=== PATIENT | female | born 1950 | race Caucasian/White ===

== ENCOUNTER 2020-01-11 09:12 | Emergency (ER) | payer MEDICARE, SELFPAY ==
[2020-01-11] VITALS (13 sets, daily range): BP systolic 151–177; BP diastolic 60–89; PULSE 90; RESP 18; TEMP 36.8; O2SAT 92–98
[2020-01-11] MEDS: BELLADONNA ALK/PHENOB ELIX 10 ML, MAG HYDROX/ALUMINUM HYD/SIMETH 30 ML, LIDOCAINE HCL 2... PO (10:31)
--- NOTE | 2020-01-11 10:52 | ED.GENADULT ---
HPI - General Adult General Chief complaint: Unspecified Stated complaint: sore throat, feeling terrible, negative strep Time Seen by Provider: 01/11/20 09:39 History of Present Illness HPI narrative: Patient is a 69-year-old female who presents ER with sore throat. Ongoing for 2 weeks. Feels discomfort when she swallows pills. Worse during the day as opposed to nighttime. No alleviating factors. Was seen in urgent care couple days ago and had negative strep test. No fevers or chills or sweats. She has had no sinus congestion or productive cough. No known sick contacts. Has been practicing social distancing. Patient has been under increased stress due to being ill. She has no chest pain or exertional component to this. States the urgent care told her that her thyroid might be enlarged. Patient reports that she has been feeling fatigued. Related Data Home Medications Medication Instructions Recorded Confirmed atorvastatin 01/11/20 lorazepam 01/11/20 sertraline mg 01/11/20 zolpidem 01/11/20 Allergies Allergy/AdvReac Type Severity Reaction Status Date / Time No Known Allergies Allergy Unknown Verified 01/11/20 09:35 Review of Systems Review of Systems: All systems reviewed & are unremarkable except as noted in HPI and below Constitutional: Constitutional: Denies chills, Reports fatigue and Denies fever(s) ENT: Denies dysphagia, Denies nasal congestion and Reports sore throat Cardiovascular: Cardiovascular: Denies chest pain Respiratory: Respiratory: Denies chest congestion, Denies cough and Denies dyspnea Gastrointestinal: Gastrointestinal: Denies abdominal pain, Denies nausea and Denies vomiting PMFSH Past Medical History Medical History (Updated 01/11/20 @ 13:01 by Clemente Ashraf MD) Depression Hyperlipidemia Surgical History Surgical History (Updated 01/11/20 @ 11:30 by Clemente Ashraf MD) History of hip replacement Social History Social History (Updated 01/11/20 @ 11:31 by Clemente Ashraf MD) Smoking status: Never smoker Exam Narrative: Exam Narrative: GENERAL: Well-appearing, well-nourished, and in no acute distress. HEAD: Normocephalic, atraumatic. ENT: Mucous membranes moist. Normal posterior oropharynx. NECK: Supple. Thyroid seems to be normal size. CHEST: Clear to auscultation. No respiratory distress. HEART: Regular rate and rhythm. Normal peripheral pulses. ABDOMEN: Soft, nontender, nondistended. EXTREMITIES: Normal range of motion. No edema. SKIN: Warm, dry, no rash. NEURO: Alert and oriented x3. Course Course Emergency Course: Patient informed of results. Discussed case with Dr. Aldridge. No need to intervene regarding TSH at this time we will see patient in routine follow-up. Vital Signs Vital signs: Vital Signs Blood Pressure 151/66 H 01/11/20 09:24 Pulse Oximetry 98 01/11/20 09:24 Temperature 98.2 F 01/11/20 09:29 Pulse Rate 90 01/11/20 09:29 Respiratory Rate 18 01/11/20 09:29 Blood Pressure 154/89 H 01/11/20 10:51 Pulse Oximetry 98 01/11/20 10:51 Medical Decision Making Vital Signs Vital Signs: Vital Signs Blood Pressure 151/66 H 01/11/20 09:24 Pulse Oximetry 98 01/11/20 09:24 Temperature 98.2 F 01/11/20 09:29 Pulse Rate 90 01/11/20 09:29 Respiratory Rate 18 01/11/20 09:29 Blood Pressure 154/89 H 01/11/20 10:51 Pulse Oximetry 98 01/11/20 10:51 Lab Data Result diagrams: 01/11/20 10:43 01/11/20 10:43 Labs: Lab Results 01/11/20 01/11/20 01/11/20 Range/Units 10:43 10:43 10:43 WBC 5.9 (4.5-10.0) K/mm3 RBC 4.62 (4.2-5.4) M/mm3 Hgb 13.3 (12.0-15.0) g/dL Hct 41.0 (37.0-47.0) % MCV 88.7 (80-100) fl MCH 28.8 (26-34) pg MCHC 32.4 (32-36) g/dl RDW 13.1 (11.5-14.5) % Plt Count 216 (150-375) k/mm3 MPV 10.5 H (7.4-10.4) fl Immature Gran % (Auto) 0.3 (0-0.5) % Neut % (Auto) 63.5 (45
[2020-01-11 10:54] LABS: Basophils Percent Auto 0.7 % (0.2-1.2); Eosinophils Absolute Auto 0.1 K/mm3 (0-0.3); Eosinophils Percent Auto 1.7 % (0-4.4); Hemoglobin 13.3 g/dL (12.0-15.0); Immature Granulocyte Absolute 0.02 K/mm3 (0.00-0.031); Immature Granulocyte Percent A 0.3 % (0-0.5); Lymphocytes Absolute Auto 1.54 K/mm3 (0.9-3.2); Mean Corpuscular HGB Conc 32.4 g/dl (32-36); Mean Corpuscular Hemoglobin 28.8 pg (26-34); Mean Corpuscular Volume 88.7 fl (80-100); Mean Platelet Volume 10.5 fl (7.4-10.4); Monocytes Absolute Auto 0.5 K/mm3 (0.1-0.6); Monocytes Percent Auto 7.8 % (2.6-8.5); Neutrophils Absolute Auto 3.8 K/mm3 (1.3-6.7); Neutrophils Percent Auto 63.5 % (45.5-73.1); Platelet Count Result 216 k/mm3 (150-375); Red Blood Count 4.62 M/mm3 (4.2-5.4); Red Cell Distribution Width 13.1 % (11.5-14.5); White Blood Count 5.9 K/mm3 (4.5-10.0)
[2020-01-11 10:59] LABS: Add Urine Microscopic? YES; Appearance Urine Clear (Clear); Bacteria Urine Trace /hpf; Bilirubin Urine Negative (Negative); Blood Urine Negative (Negative); Color Urine Straw (Yellow); Glucose Urine UA Negative (Negative); Ketones Urine Negative (Negative); Leukocyte Esterase Ur Trace LEU/UL (Negative); Mucus Urine Rare /lpf; Nitrate Urine Negative (Negative); Protein Urine Negative (Negative); RBC Urine 0-2 /hpf (0-2); Specific Grav Ur 1.014 (1.001-1.035); Squamous Epithelial Cell Urine Moderate /hpf (Few); Urobilinogen Urine Negative mg/dL (<2.0); WBC Urine 0-3 /hpf
[2020-01-11 11:13] LABS: Blood Urea Nitrogen 11 mg/dL (7-17); Calcium 10.2 mg/dL (8.4-10.2); Carbon Dioxide 29 mmol/L (22-30); Chloride 103 mmol/L (98-107); Estimated CRCL calculation 78 ml/min; Estimated Glomerular Filt Rate > 60; Glucose 122 mg/dL (65-105); Sodium 139 mmol/L (137-145)
[2020-01-11 13:26] LABS: Free T4 Free Thyroxine Reflex 0.95 ng/dL (0.78-2.19)
[2020-01-11 14:07] LABS: Total Triiodothyronine (T3) 1.73 NG/ML (0.97-1.69)
== END 2020-01-11 13:10 | disposition home or self-care (01) ==
PROVIDERS: Emergency Provider Emergency Medicine; PCP Internal Medicine
DX: R07.0 Pain in throat (principal); R94.6 Abnormal results of thyroid function studies; E78.5 Hyperlipidemia, unspecified; Z96.649 Presence of unspecified artificial hip joint; F32.9 Major depressive disorder, single episode, unspecified
CPT/HCPCS: 36415; 80048; 81001; 84439; 84443; 84480; 85025; 99283; A9270

== ENCOUNTER 2020-01-16 12:28 | Outpatient (CLI) | payer MEDICARE, SELFPAY ==
--- NOTE | ~2020-01-16 | US_ITS ---
EXAMINATION: US thyroid DATE: 01/16/2020 13:14 INDICATION: Hypothyroidism TECHNIQUE: Multiple ultrasound images of the thyroid were obtained. COMPARISON: None. FINDINGS: The right thyroid lobe measures 3.6 x 2.2 x 1.2 cm. The left thyroid lobe measures 3.6 x 1.5 x 1.1 c m. Wider than tall 7 mm solid nodule with smooth margins and without echogenic foci in the right thy roid (TI-RADS 3, mildly suspicious , FNA if >=2.5 cm, annual followup is >1.5 cm). Mildly coarsened echotexture throughout the thyroid. IMPRESSION: 1. Likely benign 7 mm right thyroid nodule. Reviewed, dictated and finalized at location A.
== END 2020-01-16 12:29 | disposition home or self-care (01) ==
PROVIDERS: PCP Internal Medicine; Visit Provider Internal Medicine
DX: E02 Subclinical iodine-deficiency hypothyroidism (principal); E04.1 Nontoxic single thyroid nodule
CPT/HCPCS: 76536

== ENCOUNTER → 2020-11-03 17:32 | Outpatient (CLI) | payer MEDICARE, SELFPAY ==
--- NOTE | ~2020-11-03 | DEXA_ITS ---
Bone Density Report Name: Meka Tobar Age: 69 Sex: Female Ethnicity: White Date of : 1950 Indication: postmenopausal; screening for osteoporosis; height loss; Referring Provider: Denia Otto Study: Bone densitometry was performed. Exam Date: November 03, 2020 Accession number: [id number] Bone Density: Region BMD T-score Z-score Classification AP Spine (L1-L4) 1.110 0.6 2.5 Normal World Health Organization criteria for BMD impression classify patients as: Normal (T-score at or above -1.0), Osteopenia (T-score between -1.0 and -2.5), or Osteoporosis (T-score at or below -2.5). Previous Exams: Region Exam Age BMD T-score BMD Change BMD Change Date g/cm2 vs Baseline vs Previous AP Spine(L1-L4) 11/03/2020 69 1.110 0.6 0.026* 0.026* 07/09/2015 64 1.084 0.3 -0.001 0.010 06/10/2012 61 1.075 0.3 -0.010 -0.029* 06/03/2010 59 1.104 0.5 0.019 0.079* 05/29/2008 57 1.025 -0.2 -0.060* -0.060* 04/24/2005 54 1.085 0.3 *Denotes significance at 95% confidence level, LSC for AP Spine = 0.022 g/cm2 Clinical Information Provided by Patient: Has used the following medications: Vitamin D, Calcium, MTV Patient maximum height was 67.0 Menopause Age: 53 Drinks caffeinated beverages Onset of menses at age 14 Number of children 2 Impression: The patient has normal bone mass. No significant bone loss was observed. Discussion: LOW RISK OF FRACTURE; BONE DENSITY IS WELL ABOVE THE MINIMUM DESIRABLE LEVEL AND ABOVE AVERAGE FOR AGE AND SEX AT ALL SKELETAL SITES TESTED. This person's bone density is above expected limits for age and sex. This is rarely clinically significant, but should be pursued if there are significant musculoskeletal complaints. The patient should follow a healthful lifestyle (good nutrition with adequate calcium and vitamin D, and appropriate weight-bearing exercise). Follow-Up: Consider repeating this study in 5 years or sooner if there is some new clinical indication. Reported by: LACHELLE on 11/03/2020 6:50:00 PM. Reviewed, dictated and finalized at location [facility]
--- NOTE | ~2020-11-03 | MM_ITS ---
EXAMINATION: MM screening judit BI w josiah HISTORY: Screening TECHNIQUE: Craniocaudal and mediolateral oblique 3-D tomosynthesis images were obtained and synthetic 2-D images were generated. CAD analysis was submitted and interpreted. COMPARISON: Comparison to multiple prior studies sequentially, with oldest reviewed study dated 02/2015. BREAST PARENCHYMAL COMPOSITION: There are scattered areas of fibroglandular density. FINDINGS: There is no evidence of suspicious mass, calcification, or architectural distortion to sugg est malignancy in either breast. There has been no suspicious interval change. IMPRESSION: 1. No mammographic evidence of malignancy. 2. Recommend routine screening mammography in one year. BI-RADS Category 1: Negative Reviewed, dictated and finalized at location A. 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
== END ==
PROVIDERS: Visit Provider Obstetrics & Gynecology
DX: Z12.31 Encounter for screening mammogram for malignant neoplasm of breast (principal); Z78.0 Asymptomatic menopausal state
CPT/HCPCS: 77063; 77067; 77080

== ENCOUNTER 2020-11-19 10:01 | Outpatient (CLI) | payer MEDICARE, SELFPAY | END 2020-11-19 10:02 | disposition home or self-care (01) | LOC: ANHCOVIDVC 10:01 | DX: Z23 Encounter for immunization (principal) | CPT/HCPCS: 0001A; 91300 ==

== ENCOUNTER 2020-12-10 09:55 | Outpatient (CLI) | payer MEDICARE, SELFPAY | END 2020-12-10 09:56 | disposition home or self-care (01) | LOC: ANHCOVIDVC 09:55 | DX: Z23 Encounter for immunization (principal) | CPT/HCPCS: 0002A; 91300 ==

== ENCOUNTER → 2021-12-19 10:49 | Outpatient (CLI) | payer MEDICARE, SELFPAY ==
--- NOTE | ~2021-12-19 | MM_ITS ---
EXAMINATION: MM screening judit BI w josiah HISTORY: Screening mammogram TECHNIQUE: Craniocaudal and mediolateral oblique 3-D tomosynthesis images were obtained and synthetic 2-D images were generated. CAD analysis was submitted and interpreted. COMPARISON: 11/19/2020, 08/14/2019, 08/12/2018 bilateral screening mammogram examinations BREAST PARENCHYMAL COMPOSITION: There are scattered areas of fibroglandular density. FINDINGS: There is no evidence of suspicious mass, calcification, or architectural distortion to sugg est malignancy in either breast. There has been no suspicious interval change. IMPRESSION: 1. No mammographic evidence of malignancy. 2. Recommend routine screening mammography in one year. BI-RADS Category 1: Negative Reviewed, dictated and finalized at location A.
== END ==
PROVIDERS: PCP Internal Medicine; Visit Provider Obstetrics & Gynecology
DX: Z12.31 Encounter for screening mammogram for malignant neoplasm of breast (principal)
CPT/HCPCS: 77063; 77067

== ENCOUNTER → 2022-06-09 10:14 | Outpatient (CLI) | payer MEDICARE, SELFPAY ==
--- NOTE | ~2022-06-09 | CT_ITS ---
EXAMINATION: CT soft tissue neck w con DATE: 06/09/2022 11:00 INDICATION: Nontoxic single thyroid nodule. TECHNIQUE: Computed tomography (CT) of the neck was performed with 75 mL Omnipaque-350 intravenous co ntrast. Automated exposure control and iterative reconstruction technique were employed. The dose-nick gth product was 444.28 mGy-cm. COMPARISON: Thyroid ultrasound 01/16/2020 FINDINGS: The thyroid is normal. There are no pathologically enlarged lymph nodes. Calcified left hil ar lymph nodes are consistent with old granulomatous disease. There is plaque in the proximal interna l carotid arteries with less than 50% stenosis relative to normal distal artery lumen diameters. Ther e are calcifications in the palatine tonsils. There is a 1.4 x 1.5 cm mass inferior to the hyoid at t he midline with attenuation of 26 HU. There is severe cervical spondylosis. IMPRESSION: 1. 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 Reviewed, dictated and finalized at location B.
[2022-06-09 10:47] LABS: Estimated Glomerular Filt Rate > 60
== END ==
PROVIDERS: PCP Internal Medicine; Visit Provider Internal Medicine
DX: E04.1 Nontoxic single thyroid nodule (principal)
CPT/HCPCS: 70491; Q9967

== ENCOUNTER → 2023-02-21 10:35 | Outpatient (CLI) | payer MEDICARE, SELFPAY ==
--- NOTE | ~2023-02-21 | MM_ITS ---
EXAMINATION: MM screening judit BI w josiah HISTORY: Screening mammogram TECHNIQUE: Craniocaudal and mediolateral oblique 3-D tomosynthesis images were obtained and synthetic 2-D images were generated. CAD analysis was submitted and interpreted. COMPARISON: December 19, 2021, November 03, 2020, August 14, 2019, July 21, 2016, July 09, 2015 erick ateral screening mammogram examinations 05/15/2018 diagnostic left mammogram and limited left breast ultrasound at 12:00 BREAST PARENCHYMAL COMPOSITION: There are scattered areas of fibroglandular density. FINDINGS: There is no evidence of suspicious mass, calcification, or architectural distortion to sugg est malignancy in either breast. There has been no suspicious interval change. IMPRESSION: 1. No mammographic evidence of malignancy. 2. Recommend routine screening mammography in one year. BI-RADS Category 1: Negative Reviewed, dictated and finalized at location A.
== END ==
PROVIDERS: PCP Internal Medicine; Visit Provider Obstetrics & Gynecology
DX: Z12.31 Encounter for screening mammogram for malignant neoplasm of breast (principal)
CPT/HCPCS: 77063; 77067

== ENCOUNTER 2023-04-11 12:02 | Outpatient (CLI) | payer MEDICARE, SELFPAY ==
--- NOTE | 2023-04-11 | ECG_ITS ---
Measurements Intervals [place] Rate: 72 P: 20 AK: 193 QRS: 13 QRSD: 87 T: 18 QT: 357 QTc: 392 Interpretive Statements SINUS RHYTHM MINIMAL VOLTAGE CRITERIA FOR LVH, CONSIDER NORMAL VARIANT [MEETS CRITERIA IN ONE OF: R(aVL), S(V1), R(V5), R(V5/V6)+S(V1)] ABNORMAL ECG NO PREVIOUS ECG AVAILABLE FOR COMPARISON Electronically Signed On 04-11-2023 15:32:40 CDT by Jonathan Veloz M.D.
[2023-04-11 13:24] LABS: Anion Gap 6 mmol/L (8-16); Blood Urea Nitrogen 17 mg/dL (7-17); Calcium 9.5 mg/dL (8.4-10.2); Carbon Dioxide 30 mmol/L (22-30); Chloride 103 mmol/L (98-107); Estimated Glomerular Filt Rate > 60; Glucose 98 mg/dL (65-110); Potassium 4.3 mmol/L (3.4-5.0); Sodium 139 mmol/L (137-145)
== END 2023-04-11 12:03 | disposition home or self-care (01) ==
PROVIDERS: PCP Internal Medicine; Visit Provider Orthopaedic Surgery
DX: Z01.818 Encounter for other preprocedural examination (principal); R06.02 Shortness of breath; R94.31 Abnormal electrocardiogram [ECG] [EKG]
CPT/HCPCS: 36415; 80048; 93005

== ENCOUNTER 2024-01-17 12:07 | Outpatient (CLI) | payer MEDICARE, SELFPAY ==
--- NOTE | ~2024-01-17 | XR_ITS ---
MODIFIED ESOPHAGRAM HISTORY: Dysphagia. TECHNIQUE: Modified barium esophagram was performed on 01/17/2024. I administered fluoroscopy and perf ormed the exam with speech pathologist. Patient was seated for lateral fluoroscopic imaging for pablo stion of thin liquids, pudding, solids and quantified amounts, followed by thin liquids in uncontroll ed amounts. This was recorded on tape. A single fluoroscopic spot image was also recorded. The DAP fo r this procedure was 1.439 Gycm2. The amount of fluoroscopy time used during this procedure was 1.1 m inutes. FINDINGS: Oral stage: Adequate function. Pharyngeal stage: Adequate function. Cervical/esophageal stage: Adequate function. IMPRESSION: Patient tolerated regular consistency oral feedings in the upright position. Please julian elate with speech pathologist findings and specific feeding recommendations. Reviewed, dictated and finalized at location A. IMPRESSION: Patient tolerated regular consistency oral feedings in the upright position. Please correlate with speech pathologist findings and specific feedi ng recommendations.
--- NOTE | ~2024-01-17 | XR_ITS ---
XR chest 2V DATE: 01/17/2024 14:23 INDICATION: Cough, wheezing. TECHNIQUE: PA and lateral views COMPARISON: None FINDINGS: Normal heart size. There is aortic arch calcification. No hilar or mediastinal enlargement. No pulmonary infiltrate or consolidation, pleural effusion or pulmonary vascular congestion or pneumo thorax. There is mild degenerative change of the thoracic spine. IMPRESSION: No active cardiopulmonary disease Aortic calcification Reviewed, dictated and finalized at location B.
--- NOTE | 2024-01-17 15:32 | REHSTMBS ---
Assessment and note entered by Seble Llamas, DESIGN TECH Modified Barium Swallow Evaluation Feeding Type Recommended Oral Food Consistency Regular, Level 7 Liquid Consistency Thin (0) ST Clinical Summary MODIFIED BARIUM SWALLOW STUDY This patient was seen for a Modified Barium Swallow study at the request of her physician. Patient reports that about three months ago, she developed a cough, coughing up sputum, that developed into wheezing and difficulty swallowing. She also reports a feeling of frequent post nasal drip. Patient stated that when she eats crackers, bread, or takes large pills, she feels that they hang up in her throat. She also stated that she always feels there is something in her throat and that she has to clear her throat frequently, which she did before, during, and after this evaluation. Patient was viewed in the lateral position to the level of C5/C6. Patient was presented with thin liquid contrast medium per cup and per straw, pudding with contrast medium, and cracker piece and fruit piece, both coated with the semi-solid mixture. She exhibited quick swallows with no evidence of penetration or aspiration. There was also no residue remaining in the pharynx after the swallows. Results suggest patient may continue to consume a regular diet and liquids with no modifications however she may want to avoid any foods that seem to hang up in the throat. She is referred back to her physician for further assessment of her complaints. Thank you for this referral.
== END 2024-01-17 12:08 | disposition home or self-care (01) ==
LOC: ANHIMG 12:09
PROVIDERS: PCP Internal Medicine; Visit Provider Nurse Practitioner Family
DX: I70.0 Atherosclerosis of aorta (principal); R06.2 Wheezing; R05.9 Cough, unspecified
CPT/HCPCS: 71046; 92611; 94060; 94726; 94729

== ENCOUNTER 2024-01-17 12:10 | Outpatient (CLI) | payer MEDICARE, SELFPAY ==
--- NOTE | 2024-01-18 07:13 | WPDPFTINT ---
PFT Procedure Performed PFT Procedure Performed Spirometry with Pre/Post Bronchodilator Plethysmography (Lung Vol) Diffusing Cap (DLCO) Flow Vol Loop PFT Interpretation This is a pulmonary function test with pre and post-bronchodilator spirometry, plethysmography and diffusing capacity. The test was performed and results interpreted in accordance with the 2019 and 2005 ATS/ERS Task Force guidelines respectively using the Global Lung Function Initiative-2012 reference equations. Patient demonstrated good effort and cooperation. Reproducibility criteria were met. The quality of the pre bronchodilator spirometry maneuver was Grade A and post bronchodilator spirometry maneuver was Grade B. Of note, the patient had difficulty with plethysmography. Findings: Spirometry: The contour the inspiratory and expiratory flow tracing are normal. The pre bronchodilator FVC is 3.30 L, 109% predicted. The pre bronchodilator FEV1 is 2.60 L, 111% predicted. The pre bronchodilator FEV1: FVC ratio is 79%. The post bronchodilator FVC is 3.32 L, representing 1% increase. The post bronchodilator FEV1 is 2.71 L, representing a 4% increase. The post bronchodilator FEV1: FVC ratio is 82%. Plethysmography: The total lung capacity is 5.29 L, 98% predicted. The functional residual capacity is 1.48 L, 48% predicted. The residual volume is 1.46 L, 63% predicted. Diffusing capacity: The diffusing capacity unadjusted for hemoglobin and carboxyhemoglobin is 17.3, 82% predicted. The diffusing capacity adjusted for alveolar volume is 3.78, 90% predicted. Impression: The spirometry is normal without evidence of an obstructive abnormality. There is no significant improvement after inhaling a single dose of albuterol. The total lung capacity is normal with a decreased functional residual capacity and residual volume. This is an abnormal but nonspecific lung volume pattern. The diffusing capacity is normal. There are no prior studies for comparison
== END 2024-01-17 12:11 | disposition home or self-care (01) ==
LOC: ANHPFT 12:11
PROVIDERS: PCP Internal Medicine; Visit Provider Nurse Practitioner Family
DX: R06.2 Wheezing (principal)
CPT/HCPCS: 94060; 94726; 94729

== ENCOUNTER 2024-01-29 05:08 | Emergency (ER) | payer MEDICARE, SELFPAY ==
--- NOTE | ~2024-01-29 | CT_ITS ---
EXAMINATION: CT abdomen pelvis wo con DATE: 01/29/2024 07:11 INDICATION: Right lower quadrant abdominal pain. TECHNIQUE: Computed tomography (CT) of the abdomen and pelvis was performed without intravenous contr ast. Automated exposure control and iterative reconstruction technique were employed. The dose-length product was 1075.72 mGy-cm. COMPARISON: None. FINDINGS: The visualized portions of the lung bases demonstrate mild atelectasis. A calcified left sherron ng nodule is consistent with old granulomatous disease. No pleural effusion. The heart size is normal . No pericardial effusion. The liver, gallbladder, spleen, pancreas, adrenal glands, and kidneys are normal. There is no urolithiasis. There is diverticulosis of the colon without evidence of diverticul itis. The appendix is normal. There is calcified atherosclerosis of the aorta and many of the other a rteries. There is no free intraperitoneal fluid. There is prominent fat in the inguinal canals. There are bilateral total hip arthroplasties. There is mild thoracic spondylosis and moderate lumbar spond ylosis. Lumbar dextroscoliosis is noted. IMPRESSION: 1. Prominent fat in the inguinal canals that may be hernias. Reviewed, dictated and finalized at location A.
[2024-01-29 05:13] VITALS: BP 164/92; PULSE 97; RESP 16; O2SAT 100
--- NOTE | 2024-01-29 06:45 | ED.ABDPAIN ---
HPI - Abdominal Pain General Chief Complaint: Skin/Abscess/Foreign Body Stated Complaint: pain rlq Time Seen by Provider: 01/29/24 05:22 Source: patient Limitations: no limitations History of Present Illness HPI narrative: Patient is a 73-year-old female presents to the emergency department complaining right lower quadrant abdominal pain. Patient states the pain started around 10:00 p.m. last night, started spontaneously, has not associated with anything, notes that the pain comes and goes, describes it as a throbbing admits to history of this pain in the past and does not know what caused it, she took a Varney for the pain which did not help much, denies radiation of pain. Patient denies urinary discomfort, history of kidney stones, constipation, diarrhea, chest pain, difficulty breathing, fever, recent injuries, recent illness. Patient does states that she was recently diagnosed with shingles and currently has a rash on her back in the right lower aspect and she is currently on antiviral treatment. Related Data Home Medications Medication Instructions Recorded Confirmed atorvastatin 20 mg tablet 01/11/20 01/02/24 lorazepam 1 mg tablet 01/11/20 01/02/24 sertraline 100 mg tablet mg 01/11/20 01/02/24 cholecalciferol (vitamin D3) 125 125 mcg PO DAILY 11/22/23 01/02/24 mcg (5,000 unit) capsule docosahexaenoic acid (dha)-epa 120 1 cap PO DAILY 11/22/23 01/02/24 mg-180 mg capsule (Fish Oil) multivitamin 1 tablet PO DAILY 11/22/23 01/02/24 vitamins A,C,P-bico-gozocl 2,148 1 tablet PO ONCE 11/22/23 01/02/24 mcg-113 mg-45 mg-17.4 mg tablet (PreserVision AREDS) Allergies Allergy/AdvReac Type Severity Reaction Status Date / Time No Known Allergies Allergy Unknown Verified 01/02/24 14:46 Review of Systems Review of Systems: A 10 system review of systems was completed on the patient and is negative except for what is stated in the HPI. Nursing and ancillary documentation was reviewed. [facility]LY [facility] Past Medical History Medical History Acute bacterial sinusitis Acute bronchitis Depression Depressive disorder Hypercholesterolemia Hyperlipidemia Low back pain Lymphadenitis Osteoarthritis Thyroglossal duct cyst Ventricular premature beats Vitamin D deficiency Surgical History Surgical History History of hip replacement History of total left hip replacement History of total right hip replacement Family History Family History Sibling Cancer Mother Hypertension Hyperlipidemia Social History Social History Smoking status: Never smoker Comments At time of signature, I have reviewed and agree with nursing past medical, surgical, social and family history unless otherwise noted. Please see the nursing chart for further information. There is no relevant family history pertinent to the presenting complaint. Exam Narrative: CONST: No acute distress. Well nourished. HENMT: Head is normocephalic and atraumatic. Moist mucous membranes. No posterior oropharynx erythema. EYES: No conjunctival icterus, injection, or pallor. PERRL. NECK: No meningeal signs. RESP: Able to speak in full sentences. Normal respiratory effort. CTAB. CARDIO: Regular rate. Regular rhythm. 2+ DP and radial pulses bilaterally. GI: Nondistended. No obvious tenderness to palpation of the abdomen however patient states that she is slightly tender when I press in the right lower quadrant. Soft. : No CVA tenderness to palpation. SKIN: Herpes zoster appearing lesions that are not crusted over over the right paralumbar region. NEURO: Oriented x3. Moves all extremities. EXTREM/MSK/BACK: No pedal edema. PSYCH: Normal affect. Course Vital Signs Vital signs: Vital Signs Pulse Rate 97 01/29/24 05:13 Respiratory Rate 16
[2024-01-29 07:08] LABS: Basophils Percent Auto 0.3 % (0.2-1.2); Eosinophils Absolute Auto 0.1 K/mm3 (0-0.3); Eosinophils Percent Auto 0.8 % (0-4.4); Hematocrit 38.7 % (37.0-47.0); Hemoglobin 12.7 g/dL (12.0-15.0); Immature Granulocyte Absolute 0.02 K/mm3 (0.00-0.031); Immature Granulocyte Percent A 0.2 % (0-0.5); Lymphocytes Absolute Auto 1.41 K/mm3 (0.9-3.2); Lymphocytes Percent Auto 15.9 % (18.3-44.2); Mean Corpuscular HGB Conc 32.8 g/dl (32-36); Mean Corpuscular Hemoglobin 28.9 pg (26-34); Mean Corpuscular Volume 88.2 fl (80-100); Mean Platelet Volume 10.2 fl (7.4-10.4); Monocytes Absolute Auto 0.5 K/mm3 (0.1-0.6); Monocytes Percent Auto 5.5 % (2.6-8.5); Neutrophils Absolute Auto 6.8 K/mm3 (1.3-6.7); Neutrophils Percent Auto 77.3 % (45.5-73.1); Platelet Count Result 193 k/mm3 (150-375); Red Blood Count 4.39 M/mm3 (4.2-5.4); Red Cell Distribution Width 13.2 % (11.5-14.5); White Blood Count 8.9 K/mm3 (4.5-10.0)
[2024-01-29] MEDS: LIDOCAINE 5% PATCH 1 PATCH TRANSDERM (07:16)
[2024-01-29] MEDS: predniSONE 20 MG TABLET 40 MG PO (07:16)
[2024-01-29] MEDS: GABAPENTIN 100 MG CAPSULE PO (07:16)
[2024-01-29 07:22] LABS: Lactic Acid Reflex 1.3 mmol/L (0.7-2.0)
[2024-01-29 07:24] LABS: Alanine Aminotransferase 21 U/L (6-35); Albumin Level 4.7 g/dL (3.5-5.1); Alkaline Phosphatase 64 U/L (38-126); Anion Gap 6 mmol/L (4-12); Aspartate Amino Transferase 25 U/L (14-36); Bilirubin,Total 0.6 mg/dL (0.2-1.3); Blood Urea Nitrogen 14 mg/dL (7-17); CRP < 0.5 mg/dL (<1.0); Calcium 9.6 mg/dL (8.4-10.2); Carbon Dioxide 27 mmol/L (22-30); Chloride 105 mmol/L (98-107); Estimated CRCL calculation 72 ml/min; Estimated Glomerular Filt Rate > 60; Glucose 155 mg/dL (65-110); Lipase 190 U/L (23-300); Potassium 3.9 mmol/L (3.4-5.0); Sodium 138 mmol/L (137-145)
[2024-01-29 07:37] LABS: Appearance Urine Cloudy (Clear); Bacteria Urine 1+ /hpf; Bilirubin Urine Negative (Negative); Blood Urine Negative (Negative); Color Urine Yellow (Yellow); Glucose Urine UA Negative (Negative); Ketones Urine Negative (Negative); Leukocyte Esterase Ur 2+ LEU/UL (Negative); Nitrate Urine Negative (Negative); Non Pathogenic Casts 0-2; Protein Urine Trace mg/dL (Negative); RBC Urine 0-2 /hpf (0-2); Specific Grav Ur 1.021 (1.001-1.035); Squamous Epithelial Cell Urine Few /hpf (Few); Urobilinogen Urine 0.2 mg/dL (<2.0); WBC Urine 21-50 /hpf (0-3)
[2024-01-29 07:38] LABS: Add Urine Microscopic? YES
[2024-01-29] MEDS: CEPHALEXIN 500 MG CAPSULE PO (08:15)
== END 2024-01-29 08:17 | disposition home or self-care (01) ==
PROVIDERS: Emergency Provider Student in an Organized Health Care Education/Training Program; PCP Internal Medicine
DX: N39.0 Urinary tract infection, site not specified (principal); M79.2 Neuralgia and neuritis, unspecified; B02.9 Zoster without complications; E78.00 Pure hypercholesterolemia, unspecified; E55.9 Vitamin D deficiency, unspecified; M19.90 Unspecified osteoarthritis, unspecified site; F32.A Depression, unspecified; Z96.643 Presence of artificial hip joint, bilateral; Z79.899 Other long term (current) drug therapy; R93.5 Abnormal findings on diagnostic imaging of other abdominal regions, including retroperitoneum
CPT/HCPCS: 36415; 74176; 80053; 81001; 83605; 83690; 83735; 85025; 86140; 87086; 87088; 99284; A9270; J7512

== ENCOUNTER 2024-05-22 12:12 | Outpatient (CLI) | payer MEDICARE, SELFPAY ==
--- NOTE | ~2024-05-22 | MM_ITS ---
EXAMINATION: MM screening judit BI w josiah HISTORY: Screening mammogram, family history of breast cancer in her sister. TECHNIQUE: Craniocaudal and mediolateral oblique 3-D tomosynthesis images were obtained and synthetic 2-D images were generated. CAD analysis was submitted and interpreted. COMPARISON: 02/21/2023, 12/19/2021, 11/03/2020, 08/14/2019 BREAST PARENCHYMAL COMPOSITION:Not Dense. There are scattered areas of fibroglandular density. FINDINGS: No suspicious mass, calcification, or architectural distortion are identified in either nimesh ast to suggest malignancy. There has been no suspicious interval change. IMPRESSION: No mammographic evidence of malignancy. Recommend routine screening mammography in one year. BI-RADS Category 1: Negative Reviewed, dictated and finalized at location .
== END 2024-05-22 12:13 | disposition home or self-care (01) ==
LOC: MICIMG 12:14
PROVIDERS: PCP Obstetrics & Gynecology; Visit Provider Obstetrics & Gynecology
DX: Z12.31 Encounter for screening mammogram for malignant neoplasm of breast (principal)
CPT/HCPCS: 77063; 77067

== ENCOUNTER 2024-07-16 00:12 | Day surgery (SDC) | payer MEDICARE, SELFPAY ==
[2024-07-08 10:50] VITALS: BMI 32.3
[2024-07-16 11:36] VITALS: BP 143/66; PULSE 89; RESP 18; TEMP 36.1; O2SAT 97
[2024-07-16] MEDS: LACTATED RINGERS 1,000 ML 150 ML IV CONT (11:43)
--- NOTE | 2024-07-16 12:42 | WPDANESEPPF ---
Anes - Initial Pre Proc Eval Procedure: Operation Date: 07/16/24 13:00 Proposed Procedures p Esophagogastroduodenoscopy - Klever Neville MD Date/Time: 07/16/24 12:42 Surgeon: Klever Neville MD Pre Op Diagnosis: Dysphagia Patient Data Age: 73 Gender: F Height: 1.68 m Weight: 88.7 kg Last Vital Signs Temp 36.1 C L 07/16/24 11:36 Pulse 89 07/16/24 11:36 Resp 18 07/16/24 11:36 BP 143/66 H 07/16/24 11:36 Pulse Ox 97 07/16/24 11:36 O2 Del Method Room Air 07/16/24 11:36 Allergies Allergy/AdvReac Type Severity Reaction Status Date / Time No Known Allergies Allergy Unknown Verified 07/16/24 11:35 Home Medications Medication Instructions Recorded Confirmed Type atorvastatin 20 mg tablet 20 mg PO DAILY 01/11/20 07/16/24 History lorazepam 1 mg tablet 1 mg PO PRN PRN Anxiety 01/11/20 07/16/24 History sertraline 100 mg tablet 100 mg PO DAILY 01/11/20 07/16/24 History cholecalciferol (vitamin D3) 125 125 mcg PO DAILY 11/22/23 07/16/24 History mcg (5,000 unit) capsule docosahexaenoic acid (dha)-epa 120 1 cap PO DAILY 11/22/23 07/16/24 History mg-180 mg capsule (Fish Oil) multivitamin 1 tablet PO DAILY 11/22/23 07/16/24 History vitamins A,C,B-pljb-warycd 2,148 1 tablet PO ONCE 11/22/23 07/16/24 History mcg-113 mg-45 mg-17.4 mg tablet (PreserVision AREDS) ibuprofen 400 mg tablet 400 mg PO Q6H PRN pain #30 tabs 01/29/24 07/16/24 Rx metformin 500 mg tablet 500 mg PO BID 04/18/24 07/16/24 History Patient hx anesthesia problems: none Family hx anesthesia problems: none Results Review: All pre-operative results and documents have been reviewed as part of the pre-operative evaluation. 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 Family History Family History Sibling Cancer Mother Hypertension Hyperlipidemia Social History Social History Smoking status: Never smoker Alcohol intake: never Substance use: never Substance use type: does not use Living arrangements: with family Spiritual care concerns: No Anes - Eval Final PreProcedure Day of Procedure 07/16/24 12:42 Patient weight: obese Heart: regular rate and rhythm Lungs: clear to auscultation Airway: Mallampati scale class II Neurological: alert and oriented Last oral intake: >/= 8 hours ASA classification: III Emergent: no Anesthetic plan: proceed Anesthesia type and monitoring: general GIVS Results Review: All pre-operative results and documents have been reviewed as part of the pre-operative evaluation. Informed Consent: The patient's anesthetic plan and its attendant risks and benefits were discussed with the patient/family/POA. Questions were solicited and answers provided to the satisfaction of the patient/family/POA.
--- NOTE | 2024-07-16 12:46 | P.HP_ITS ---
History of Present Illness History of Present Illness Consent: Risks, benefits, and alternatives have been discussed and questions answered. Patient agrees to proceed with procedure. Chief complaint: Dysphagia Narrative: Meka Tobar is a 73 year old female with dysphagia after eating certain meals, had egd but years ago Review of Systems Review of Systems: All systems reviewed & are unremarkable except as noted in HPI and below PMFSH Past Medical History Medical History Acute bacterial sinusitis Acute bronchitis Depression Depressive disorder Diabetes Hypercholesterolemia Hyperlipidemia Low back pain Lymphadenitis Osteoarthritis Thyroglossal duct cyst Ventricular premature beats Vitamin D deficiency Surgical History Surgical History History of hip replacement History of total left hip replacement History of total right hip replacement Family History Family History Sibling Cancer Mother Hypertension Hyperlipidemia Social History Social History Smoking status: Never smoker Alcohol intake: never Substance use: never Substance use type: does not use Living arrangements: with family Spiritual care concerns: No Meds Home Medications and Allergies Home Medications Medication Instructions Recorded Confirmed Type atorvastatin 20 mg tablet 20 mg PO DAILY 01/11/20 07/16/24 History lorazepam 1 mg tablet 1 mg PO PRN PRN Anxiety 01/11/20 07/16/24 History sertraline 100 mg tablet 100 mg PO DAILY 01/11/20 07/16/24 History cholecalciferol (vitamin D3) 125 125 mcg PO DAILY 11/22/23 07/16/24 History mcg (5,000 unit) capsule docosahexaenoic acid (dha)-epa 120 1 cap PO DAILY 11/22/23 07/16/24 History mg-180 mg capsule (Fish Oil) multivitamin 1 tablet PO DAILY 11/22/23 07/16/24 History vitamins A,C,I-ebwh-qopzab 2,148 1 tablet PO ONCE 11/22/23 07/16/24 History mcg-113 mg-45 mg-17.4 mg tablet (PreserVision AREDS) ibuprofen 400 mg tablet 400 mg PO Q6H PRN pain #30 tabs 05/28/24 11/13/24 Rx metformin 500 mg tablet 500 mg PO BID 04/18/24 07/16/24 History Allergies Allergy/AdvReac Type Severity Reaction Status Date / Time No Known Allergies Allergy Unknown Verified 07/16/24 11:35 Vital Signs Vital Signs - 24 hr 07/16/24 11:36 Temperature 97.0 F L Pulse Rate 89 Respiratory Rate 18 Blood Pressure 143/66 H Pulse Oximetry 97 Oxygen Delivery Room Air Exam Const: General: comfortable and no acute distress HENMT: Face/Nose/Sinus: Normal nares present Eyes: General: appearance normal, both eyes and all related structures Neck: Neck: no JVD Resp: Auscultation: clear to auscultation bilaterally Cardio: Rate: regular rate Rhythm: regular rhythm GI: Inspection: non-distended GI Palp: Yes Soft to palpation Skin: General skin exam: normal color Neuro: General: gait normal Speech: normal speech Extrem: General: normal to inspection Psych: Mental Status: mental status grossly normal Assessment and Plan Assessment and plan (1) Dysphagia: Qualifiers: Dysphagia type: esophageal phase Qualified Code(s): R13.19 - Other dysphagia Code(s): R13.10 - Dysphagia, unspecified Status: Acute Assessment and Plan: egd to assess (2) Globus sensation: Code(s): R09.A2 - Foreign body sensation, throat Status: Acute (3) Throat clearing: Code(s): R09.89 - Other specified symptoms and signs involving the circulatory and respi ratory systems Status: Acute
[2024-07-16 12:49] LABS: Glucose Point of Care 117 mg/dl (65-105)
[2024-07-16 12:56] VITALS: BP 135/51; PULSE 72; RESP 14; O2SAT 99
[2024-07-16 13:06] VITALS: BP 123/61; PULSE 74; RESP 18; O2SAT 97
[2024-07-16 13:16] VITALS: BP 135/77; PULSE 72; RESP 16; O2SAT 97
== END 2024-07-16 13:31 | disposition home or self-care (01) ==
PROVIDERS: PCP Internal Medicine; Referring Provider Nurse Practitioner Family; Visit Provider Internal Medicine Gastroenterology
PROC: 0DJ08ZZ Inspection of Upper Intestinal Tract, Via Natural or Artificial Opening Endoscopic (ICD-10-PCS; CPT 43235; principal; 2024-07-16 13:00)
DX: K29.50 Unspecified chronic gastritis without bleeding (principal); K21.00 Gastro-esophageal reflux disease with esophagitis, without bleeding; E11.9 Type 2 diabetes mellitus without complications; E55.9 Vitamin D deficiency, unspecified; F32.A Depression, unspecified; E78.00 Pure hypercholesterolemia, unspecified; M19.90 Unspecified osteoarthritis, unspecified site; I49.3 Ventricular premature depolarization; E66.9 Obesity, unspecified; Z68.31 Body mass index [BMI] 31.0-31.9, adult; Z79.1 Long term (current) use of non-steroidal anti-inflammatories (NSAID); Z79.84 Long term (current) use of oral hypoglycemic drugs; Z98.890 Other specified postprocedural states; Z96.643 Presence of artificial hip joint, bilateral; Z80.9 Family history of malignant neoplasm, unspecified
CPT/HCPCS: 43239; 82948; 88305; J2704; J7120

== ENCOUNTER 2025-08-23 14:20 | Emergency (ER) | payer MEDICARE, SELFPAY ==
--- OUTSIDE RECORDS SUMMARY | 2025-08-23 14:22 | XMS_ITS | Data Portability ---
Author Organization [place] - [facility] [employer], Main Office Address [address] [place] [address] Care Team Providers Care Group Insurance Special Agent Name Role Phone KLAUDIA SHEA Primary Care Provider [phone] KLAUDIA SHEA Referring Provider [phone] Assessment No assessment recorded. Plan of Treatment Reminders Order Date Submit Date Provider Last Modified By Organization Details Last Modified Time Details Appointments Any 2025 01:30P Antonia Shea MD Not available Not available Not available Lab HbA1c (hemoglob in A1c), blood 2024 025 [facility], [address] [place], [address], 02/25/2025 05:53:27 microalbu min, urine 2024 025 [email or web address] [facility], [address] [place], [address], 03/02/2025 14:54:17 lipid panel, serum 2024 025 [facility], [address] [place], [address], 02/25/2025 05:53:18 CMP, serum or plasma 2024 025 [facility], [address] [place], [address], 02/25/2025 05:53:21 T4, free, serum 2024 025 [facility], [address] [place], [address], 02/25/2025 05:53:24 TSH, serum or plasma 2024 025 [facility], [address] [place], [address], 02/25/2025 05:53:25 CBC w/ auto diff 2024 025 [facility], [address] [place], [address], 02/25/2025 05:53:22 vitamin B12, serum 2024 025 [facility], [address] [place], [address], 02/25/2025 05:53:26 magnesium , serum or plasma 2024 025 [facility], [address] [place], [address], 02/25/2025 05:53:20 HbA1c (hemoglob in A1c), blood 2023 024 [facility], [address] [place], [address], 08/20/2024 01:43:44 TSH, serum or plasma 2023 024 [facility], [address] [place], [address], 02/16/2024 06:25:03 T4, free, serum 2023 024 [facility], [address] [place], [address], 02/16/2024 06:25:03 lipid panel, serum 2023 024 [facility], [address] [place], [address], 02/16/2024 06:25:01 CMP, serum or plasma 2023 024 [facility], [address] [place], [address], 02/16/2024 06:25:02 CBC w/ auto diff 2023 024 [facility], [address] [place], [address], 02/16/2024 06:25:02 HbA1c (hemoglob in A1c), blood 2022 023 [facility], [address] [place], [address], 08/15/2023 05:00:02 lipid panel, serum 2022 023 [facility], [address] [place], [address], 08/15/2023 04:59:56 CMP, serum or plasma 2022 023 [facility], [address] [place], [address], 08/15/2023 04:59:57 TSH, serum or plasma 2022 023 [facility], [address] [place], [address], 08/15/2023 05:00:00 T4, free, serum 2022 023 [facility], [address] [place], [address], 08/15/2023 04:59:59 CBC w/ auto diff 2022 023 [facility], [address] [place], [address], 08/15/2023 04:59:58 Referral None recorded. Procedures None recorded. Surgeries None recorded. Imaging None recorded. Medication Orders metoclopr amide 10 mg tablet 2023 024 JEAN [facility][id number], [address], [place], [place], [id number], 08/14/2024 15:02:28 Medrol (Simon) 4 mg tablets in a dose pack 2023 024 [email or web address] [facility] #[id number], [address], [place], [place], [id number], 08/14/2024 14:47:27 Zithromax Z-Simon 250 mg tablet 2023 024 [email or web address] [facility] #[id number], [address], [place], [place], [id number], 08/14/2024 14:47:16 benzonata te 200 mg capsule 2022 023 [email or web address] [facility] #[id number], [address], [place], [place], [id number], 2023 16:33:20 azithromy deepti 250 mg tablet 2022 023 [email or web address] [facility] #[id number], [address], [place], [place], [id number], 08/14/2024 14:47:16 Patient TargetsNo targets recorded. Patient Instructions Encounter Date Encounter Id Patient Instructions Last Modified By Organization Details Last Modified Time 08/10/2023 [id number] dementia rating scale-2* Not available 08/10/2023 15:15:09 alcohol misuse* [email or web address] Not available 08/10/2023 15:15:08 depression screening* [email or web address] Not available 08/10/2023 15:15:08 multi-dimensiona l health assessment questionnaire* [email or web address] Not available 08/10/2023 15:15:08 [facility]ized [facility] Plan and Screening Recommendations Advance Directives - Do you have one? Yes Advance Directives - Do we have your advance directive on file in your health record? No, please bring in a copy at your earliest convenience Primary Prevention/Interven tion (prevents or decreases the chance of common diseases from occurring) Smoking Risk: Non Smoker Alcohol Misuse Screening: Negative Weight: Overweight try to lose 10% of your body weight Physical activity: Need more exercise/physical activity Nutrition: Average Eat heart healthy diet Fall Risk (screened today): Low Vaccines Pneumococcal: No further needed Influenza: Recommended today Chronic Disease Risks Stroke: Intermediate Risk Active diagnosis, Continue current treatment plan Heart Attack: Intermediate Risk Active diagnosis, Continue current treatment plan Clogging of the Arteries: Intermediate Risk Active diagnosis, Continue current treatment plan Diabetes: Intermediate Risk Active diagnosis, Continue current treatment plan Secondary Prevention/Interven tion (detects treatable diseases before they may cause symptoms, disability, or ) Breast Cancer Screening with mammogram: up to date Cervical/Uterine/Ov rachel Cancer Screening: No screening necessary Osteoporosis Screening: Recommended today Date Screening Last Performed: __2020 Colon Cancer Screening: Colonoscopy Recommended Date Screening Last Performed: Eye Disease Screening: Your next exam in: goes every 6 mos Dementia Risk: Low I have no recommendations Depression Screening: Negative I have no recommendations [email or web address] Not available 08/10/2023 15:09:11 Medicare wellnes s evaluation risk assessment stable. Follow-up for hyperlipidemia, subclinical hypothyroidism, obesity class one and post COVID bronchitis or early pneumonia. Plan is to give a trial of a Z-Simon as well as some Tessalon Perles. Will could check blood work in the form of CBC, CMP, lipid, thyroid as well as a hemoglobin A1c for an elevated blood sugar 124 last examination. Will continue on current Rx follow-up in six months.. Standard immunizations of RSV, COVID, influenza and shingles as recommended. Portions of the record may have been created with voice recognition software. Occasional wrong-word or s ound-a-like substitutions may have occurred due to the inherent limitations of voice recognition software. Read the chart carefully and recognize, using context, where substitutions have occurred. Next Appt: 6 Months Approximate Date: 12/08/2023 [email or web address] Not available 08/10/2023 15:15:57 2023 [id number] Wheezing etiolog y which obscure. Will give a trial of some antibiotics in the form of Z-Simon. I have instructed patient if no improvement the next 48-72 hours would consider doing further studies including a possible CT scan of the soft tissues of the neck to further evaluate for any type of airway obstruction. Clinically stable otherwise. Also give a trial of a Medrol Dosepak with that. Portions of the record may have been created with voice recognition software. Occasional wrong-word or s ound-a-like substitutions may have occurred due to the inherent limitations of voice recognition software. Read the chart carefully and recognize, using context, where substitutions have occurred. Keep Appt: Sun 02:00 PM [place] [email or web address] Not available 2023 17:15:37 02/07/2024 [id number] Follow-up hyperlipidemia, subclinical hypothyroidism, depression, herpes zoster and obesity class one. Plan check blood work consisting of CBC, CMP, lipid, thyroid continue on current Rx follow-up six months Next Appointment: 6 Months Approximate Date: 08/05/2024 Portions of the record may have been created with voice recognition software. Occasional wrong-word or s ound-a-like substitutions may have occurred due to the inherent limitations of voice recognition software. Read the chart carefully and recognize, using context, where substitutions have occurred. [email or web address] Not available 02/07/2024 17:12:25 08/14/2024 [id number] Follow-up for GE RD, hyperlipidemia, type 2 diabetes obesity class one. Clinically doing well overall. No interval complaints of any new problems. Will check a hemoglobin A1c. Will start on some Reglan 10 mg t.i.d. A.c. To see if if any improvement in the deglutition. Otherwise doing well. Follow-up in six months Additional Orders - Directives - Recommendations 1. Cologuard 2. Bone density scan Follow Up: 6 Months Approximate Date: 02/10/2025 Portions of the record may have been created with voice recognition software. Occasional wrong-word or s ound-a-like substitutions may have occurred due to the inherent limitations of voice recognition software. Read the chart carefully and recognize, using context, where substitutions have occurred. Created: Klaudia Shea M.D. 08.14.2024 02:02 PM [email or web address] Not available 08/14/2024 15:02:22 02/19/2025 [id number] Medicare wellnes s evaluation risk assessment stable. Follow-up for hyperlipidemia, GERD, depression, type 2 diabetes and obesity class one. Check blood work consisting of CBC, CMP, lipid, thyroid, hemoglobin A1c, B12 and folate level. Continue on current Rx. Is due for bone density scan. Will continue on current medications and follow-up in six months Additional Orders - Directives - Recommendations 1. Bone density scan Follow Up: 6 Months Approximate Date: 08/18/2025 Portions of record are template driven. When necessary additional context will be provided. Additionally some portions have been created with voice recognition software. Occasional wrong-word or s ound-a-like substitutions may have occurred due to the inherent limitations of voice recognition software. Read the chart carefully and recognize, using context, where substitutions may have occurred. Created: Klaudia Shea M.D. 02.19.2025 02:11 PM [email or web address] Not available 02/19/2025 15:11:16 Reason for Referral None Reported. Results Created Date Observation Date Name Description Value Unit Range Abnormal Flag Note LastModifiedBy Organization Detail LastModifiedTime 08/14/2008/15/2023 LIPID PANEL , STAND ZEHRA cholesterol, total 128 mg/dL <200 normal Not Available [employer] [facility] [address] [place], [address], 08/15/2023 04:59:55 08/14/2008/15/2023 LIPID PANEL , STAND ZEHRA HDL cholesterol 48 mg/dL > or = 50 low Not Available [employer] [facility] [address] [place], [address], 08/15/2023 04:59:55 08/14/2008/15/2023 LIPID PANEL , STAND ZEHRA triglyceride s 108 mg/dL <150 normal Not Available [employer] [facility] [address] [place], [address], 08/15/2023 04:59:55 08/14/2008/15/2023 LIPID PANEL , STAND ZEHRA LDL-choleste rol 61 mg/dL _(joselin c) normal Refer ence range : <100 Sukhjinder able range <100 mg/dL for prima ry preve ntion ; <70 mg/dL for patie nts with CHD or diabe tic patie nts with > or = 2 CHD risk facto rs. LDL-C is now calcu lated using the [employer] kins sharyn kowalski n, which is a valid ated novel metho d sonidoi radha jennifer r accur acy than the Fried beverly equat ion in the estim ation of LDL-C . Aida rowe SS et al. DANNI. 2013; 310(1 9): 2061- 206 (http ://ed ucati on.Qu estDi Metaspace [employer]. com/f aq/FA Q164) Not Available [employer] [facility] [address] [place], [address], 08/15/2023 04:59:55 08/14/20 23 08/15/2023 LIPID PANEL , STAND ZEHRA chol/HDLC ratio 2.7 (calc ) <5.0 normal Not Available [employer] [address] [place], [address], 08/15/2023 04:59:55 08/14/20 23 08/15/2023 LIPID PANEL , STAND ZEHRA non HDL cholesterol 80 mg/dL _(joselin c) <130 normal For patie nts with diabe rodrigo plus 1 major ASCVD risk facto r, treat ing to a non-H DL-C goal of <100 mg/dL (LDL- C of <70 mg/dL ) is consi dered a thera pery c optio n. Not Available [employer] [facility] [address] [address] [place], [address], 08/15/2023 04:59:55 08/14/20 23 08/15/2023 COMPR EHENS SUKH METAB OLIC PANEL glucose 139 mg/dL 65-99 high Fasti ng refer ence inter panda For someo ne witho ut known diabe rodrigo, a gluco se value >125 mg/dL indic ates that they may have diabe rodrigo and this shoul d be confi rmed with a follo w-up test. Not Available [employer] [facility] [address] [place], [address], 08/15/2023 04:59:57 08/14/20 23 08/15/2023 COMPR EHENS SUKH METAB OLIC PANEL urea nitrogen (BUN) 15 mg/dL 7-25 normal Not Available [place] [address] [facility] [facility] [place], [address], 08/15/2023 04:59:57 08/14/20 23 08/15/2023 COMPR EHENS SUKH METAB OLIC PANEL creatinine 0.83 mg/dL 0.60-1 .00 normal Not Available [place] [address] [place], [address], 08/15/2023 04:59:57 08/14/20 23 08/15/2023 COMPR EHENS SUKH METAB OLIC PANEL eGFR 76 mL/mi n/1.7 3m2 > or = 60 normal Not Available [place] [address] [place], [address], 08/15/2023 04:59:57 08/14/20 23 08/15/2023 COMPR EHENS SUKH METAB OLIC PANEL BUN/creatini ne ratio SEE NOTE: (calc ) 6-22 Not Repor isaak: BUN and Creat inine are withi n refer ence range . Not Available [place] [address] [place], [address], 08/15/2023 04:59:57 08/14/20 23 08/15/2023 COMPR EHENS SUKH METAB OLIC PANEL sodium 143 mmol/ L 135-14 6 normal Not Available [place] [address] [place], [address], 08/15/2023 04:59:57 08/14/20 23 08/15/2023 COMPR EHENS SUKH METAB OLIC PANEL potassium 4.5 mmol/ L 3.5-5. 3 normal Not Available [place] [address] [place], [address], 08/15/2023 04:59:57 08/14/20 23 08/15/2023 COMPR EHENS SUKH METAB OLIC PANEL chloride 104 mmol/ L 98-110 normal Not Available [address], [address], 08/15/2023 04:59:57 08/14/20 23 08/15/2023 COMPR EHENS SUKH METAB OLIC PANEL carbon dioxide 31 mmol/ L 20-32 normal Not Available [address], [address], 08/15/2023 04:59:57 08/14/20 23 08/15/2023 COMPR EHENS SUKH METAB OLIC PANEL calcium 9.7 mg/dL 8.6-10 .4 normal Not Available [address], [address], 08/15/2023 04:59:57 08/14/20 23 08/15/2023 COMPR EHENS SUKH METAB OLIC PANEL protein, total 6.5 g/dL 6.1-8. 1 normal Not Available [address], [address], 08/15/2023 04:59:57 08/14/20 23 08/15/2023 COMPR EHENS SUKH METAB OLIC PANEL albumin 4.4 g/dL 3.6-5. 1 normal Not Available [address], [address], 08/15/2023 04:59:57 08/14/20 23 08/15/2023 COMPR EHENS SUKH METAB OLIC PANEL globulin 2.1 g/dL_ (calc ) 1.9-3. 7 normal Not Available [address], [address], 08/15/2023 04:59:57 08/14/20 23 08/15/2023 COMPR EHENS SUKH METAB OLIC PANEL albumin/glob ulin ratio 2.1 (calc ) 1.0-2. 5 normal Not Available [address], [address], 08/15/2023 04:59:57 08/14/20 23 08/15/2023 COMPR EHENS SUKH METAB OLIC PANEL bilirubin, total 0.6 mg/dL 0.2-1. 2 normal Not Available [address], [address], 08/15/2023 04:59:57 08/14/20 23 08/15/2023 COMPR EHENS SUKH METAB OLIC PANEL alkaline phosphatase 51 U/L 37-153 normal Not Available [facility] [employer] [address], [address], 08/15/2023 04:59:57 08/14/20 23 08/15/2023 COMPR EHENS SUKH METAB OLIC PANEL AST 15 U/L 10-35 normal Not Available [address], [address], 08/15/2023 04:59:57 08/14/20 23 08/15/2023 COMPR EHENS SUKH METAB OLIC PANEL ALT 15 U/L 6-29 normal Not Available [address], [address], 08/15/2023 04:59:57 08/14/20 23 08/15/2023 CBC (INCL UDES DIFF/ PLT) white blood cell count 4.2 thous and/u L 3.8-10 .8 normal Not Available [address], [address], 08/15/2023 04:59:58 08/14/20 23 08/15/2023 CBC (INCL UDES DIFF/ PLT) red blood cell count 4.40 chandra on/uL 3.80-5 .10 normal Not Available [address], [address], 08/15/2023 04:59:58 08/14/20 23 08/15/2023 CBC (INCL UDES DIFF/ PLT) hemoglobin 12.4 g/dL 11.7-1 5.5 normal Not Available [address], [address], 08/15/2023 04:59:58 08/14/20 23 08/15/2023 CBC (INCL UDES DIFF/ PLT) hematocrit 38.6 % 35.0-4 5.0 normal Not Available [address], [address], 08/15/2023 04:59:58 08/14/2008/15/2023 CBC (INCL UDES DIFF/ PLT) MCV 87.7 fL 80.0-1 00.0 normal Not Available [address], [address], 08/15/2023 04:59:58 08/14/2008/15/2023 CBC (INCL UDES DIFF/ PLT) MCH 28.2 pg 27.0-3 3.0 normal Not Available [address], [address], 08/15/2023 04:59:58 08/14/20 23 08/15/2023 CBC (INCL UDES DIFF/ PLT) MCHC 32.1 g/dL 32.0-3 6.0 normal Not Available [address], [address], 08/15/2023 04:59:58 08/14/20 23 08/15/2023 CBC (INCL UDES DIFF/ PLT) RDW 14.0 % 11.0-1 5.0 normal Not Available [address], [address], 08/15/2023 04:59:58 08/14/20 23 08/15/2023 CBC (INCL UDES DIFF/ PLT) platelet count 185 thous and/u L 140-40 0 normal Not Available [address], [address], 08/15/2023 04:59:58 08/14/2008/15/2023 CBC (INCL UDES DIFF/ PLT) MPV 11.1 fL 7.5-12 .5 normal Not Available [address], [address], 08/15/2023 04:59:58 08/14/2008/15/2023 CBC (INCL UDES DIFF/ PLT) absolute neutrophils 2146 cells /uL 1500-7 800 normal Not Available [address], [address], 08/15/2023 04:59:58 08/14/2008/15/2023 CBC (INCL UDES DIFF/ PLT) absolute lymphocytes 1567 cells /uL 850-39 00 normal Not Available [address], [address], 08/15/2023 04:59:58 08/14/2008/15/2023 CBC (INCL UDES DIFF/ PLT) absolute monocytes 357 cells /uL 200-95 0 normal Not Available [address], [address], 08/15/2023 04:59:58 08/14/2008/15/2023 CBC (INCL UDES DIFF/ PLT) absolute eosinophils 101 cells /uL 15-500 normal Not Available [address], [address], 08/15/2023 04:59:58 08/14/2008/15/2023 CBC (INCL UDES DIFF/ PLT) absolute basophils 29 cells /uL 0-200 normal Not Available [facility] [address], [address], 08/15/2023 04:59:58 08/14/2008/15/2023 CBC (INCL UDES DIFF/ PLT) neutrophils 51.1 % normal Not Available [address], [address], 08/15/2023 04:59:58 08/14/2008/15/2023 CBC (INCL UDES DIFF/ PLT) lymphocytes 37.3 % normal Not Available [address], [address], 08/15/2023 04:59:58 08/14/2008/15/2023 CBC (INCL UDES DIFF/ PLT) monocytes 8.5 % normal Not Available [address], [address], 08/15/2023 04:59:58 08/14/2008/15/2023 CBC (INCL UDES DIFF/ PLT) eosinophils 2.4 % normal Not Available [address], [address], 08/15/2023 04:59:58 08/14/2008/15/2023 CBC (INCL UDES DIFF/ PLT) basophils 0.7 % normal Not Available [facility] [address], [address], 08/15/2023 04:59:58 08/14/2008/15/2023 T4, FREE T4, free 0.8 NG/dL 0.8-1. 8 normal Not Available [facility] [address], [address], 08/15/2023 04:59:59 08/14/2008/15/2023 TSH TSH 4.66 mIU/L 0.40-4 .50 high Not Available [address], [address], 08/15/2023 05:00:00 08/14/2008/15/2023 HEMOG LOBIN A1C hemoglobin A1C 6.1 %_of_ total _HGB <5.7 high For someo ne witho ut known diabe rodrigo, a hemog lobin A1c value betwe en 5.7% and 6.4% is consi stent with predi abete s and shoul d be confi rmed with a follo w-up test. For someo ne with known diabe rodrigo, a value <7% indic ates that their diabe rodrigo is well contr olled . A1c targe ts shoul d be indiv idual ized based on durat ion of diabe rodrigo, age, comor bid condi tions , and other consi derat ions. This assay resul t is consi stent with an incre ased risk of diabe rodrigo. Curre ntly, no conse nsus exist s regar ding use of hemog lobin A1c for diagn osis of diabe rodrigo for child guanako. Not Available [address] [place], [address], 08/15/2023 05:00:01 02/15/20 24 02/16/2024 LIPID PANEL , STAND ZEHRA cholesterol, total 149 mg/dL <200 normal Not Available [facility] [address], [address], 02/16/2024 06:25:01 02/15/20 24 02/16/2024 LIPID PANEL , STAND ZEHRA HDL cholesterol 63 mg/dL > or = 50 normal Not Available [facility] [address] [place], [address], 02/16/2024 06:25:01 02/15/20 24 02/16/2024 LIPID PANEL , STAND ZEHRA triglyceride s 122 mg/dL <150 normal Not Available [facility] [address] [place], [address], 02/16/2024 06:25:01 02/15/20 24 02/16/2024 LIPID PANEL , STAND ZEHRA LDL-choleste rol 66 mg/dL _(joselin c) normal Refer ence range : <100 Sukhjinder able range <100 mg/dL for prima ry preve ntion ; <70 mg/dL for patie nts with CHD or diabe tic patie nts with > or = 2 CHD risk facto rs. LDL-C is now calcu lated using the [facility] n-Hop kins sharyn rowe, which is a valid ated novel metho d provi radha jennifer r accur acy than the Fried beverly equat ion in the estim ation of LDL-C . Aida rowe SS et al. DANNI. 2013; 310(1 9): 2061- 206 (http ://ed ucati on.[employer]. com/f aq/FA Q164) Not Available [facility] [address] [place], [address], 02/16/2024 06:25:01 02/15/20 24 02/16/2024 LIPID PANEL , STAND ZEHRA chol/HDLC ratio 2.4 (calc ) <5.0 normal Not Available [facility] [address] [address] , [place], [address], 02/16/2024 06:25:01 02/15/20 24 02/16/2024 LIPID PANEL , STAND ZEHRA non HDL cholesterol 86 mg/dL _(joselin c) <130 normal For patie nts with diabe rodrigo plus 1 major ASCVD risk facto r, treat ing to a non-H DL-C goal of <100 mg/dL (LDL- C of <70 mg/dL ) is consi dered a thera peuti c optio n. Not Available [facility] [address] [place], [address], 02/16/2024 06:25:01 02/15/20 24 02/16/2024 COMPR EHENS SUKH METAB OLIC PANEL glucose 136 mg/dL 65-99 high Fasti ng refer ence inter panda For someo ne witho ut known diabe rodrigo, a gluco se value >125 mg/dL indic ates that they may have diabe rodrigo and this shoul d be confi rmed with a follo w-up test. Not Available [address], [address], 02/16/2024 06:25:02 02/15/20 24 02/16/2024 COMPR EHENS SUKH METAB OLIC PANEL urea nitrogen (BUN) 14 mg/dL 7-25 normal Not Available [address], [address], 02/16/2024 06:25:02 02/15/20 24 02/16/2024 COMPR EHENS SUKH METAB OLIC PANEL creatinine 0.72 mg/dL 0.60-1 .00 normal Not Available [address], [address], 02/16/2024 06:25:02 02/15/20 24 02/16/2024 COMPR EHENS SUKH METAB OLIC PANEL eGFR 89 mL/mi n/1.7 3m2 > or = 60 normal Not Available [address], [address], 02/16/2024 06:25:02 02/15/20 24 02/16/2024 COMPR EHENS SUKH METAB OLIC PANEL BUN/creatini ne ratio SEE NOTE: (calc ) 6-22 Not Repor isaak: BUN and Creat inine are withi n refer ence range . Not Available [address], [address], 02/16/2024 06:25:02 02/15/20 24 02/16/2024 COMPR EHENS SUKH METAB OLIC PANEL sodium 140 mmol/ L 135-14 6 normal Not Available [address], [address], 02/16/2024 06:25:02 02/15/20 24 02/16/2024 COMPR EHENS SUKH METAB OLIC PANEL potassium 4.5 mmol/ L 3.5-5. 3 normal Not Available [address] [place], [address], 02/16/2024 06:25:02 02/15/20 24 02/16/2024 COMPR EHENS SUKH METAB OLIC PANEL chloride 104 mmol/ L 98-110 normal Not Available [address], [address], 02/16/2024 06:25:02 02/15/20 24 02/16/2024 COMPR EHENS SUKH METAB OLIC PANEL carbon dioxide 28 mmol/ L 20-32 normal Not Available [facility] [address], [address], 02/16/2024 06:25:02 02/15/20 24 02/16/2024 COMPR EHENS SUKH METAB OLIC PANEL calcium 9.6 mg/dL 8.6-10 .4 normal Not Available [address], [address], 02/16/2024 06:25:02 02/15/20 24 02/16/2024 COMPR EHENS SUKH METAB OLIC PANEL protein, total 6.6 g/dL 6.1-8. 1 normal Not Available [address], [address], 02/16/2024 06:25:02 02/15/20 24 02/16/2024 COMPR EHENS SUKH METAB OLIC PANEL albumin 4.4 g/dL 3.6-5. 1 normal Not Available [facility] [address], [address], 02/16/2024 06:25:02 02/15/20 24 02/16/2024 COMPR EHENS SUKH METAB OLIC PANEL globulin 2.2 g/dL_ (calc ) 1.9-3. 7 normal Not Available [facility] [address], [address], 02/16/2024 06:25:02 02/15/20 24 02/16/2024 COMPR EHENS SUKH METAB OLIC PANEL albumin/glob ulin ratio 2.0 (calc ) 1.0-2. 5 normal Not Available [address], [address], 02/16/2024 06:25:02 02/15/20 24 02/16/2024 COMPR EHENS SUKH METAB OLIC PANEL bilirubin, total 0.8 mg/dL 0.2-1. 2 normal Not Available [address], [address], 02/16/2024 06:25:02 02/15/20 24 02/16/2024 COMPR EHENS SUKH METAB OLIC PANEL alkaline phosphatase 50 U/L 37-153 normal Not Available [address], [address], 02/16/2024 06:25:02 02/15/20 24 02/16/2024 COMPR EHENS SUKH METAB OLIC PANEL AST 14 U/L 10-35 normal Not Available [address], [address], 02/16/2024 06:25:02 02/15/20 24 02/16/2024 COMPR EHENS SUKH METAB OLIC PANEL ALT 21 U/L 6-29 normal Not Available [address], [address], 02/16/2024 06:25:02 02/15/20 24 02/16/2024 CBC (INCL UDES DIFF/ PLT) white blood cell count 5.0 thous and/u L 3.8-10 .8 normal Not Available [address], [address], 02/16/2024 06:25:02 02/15/20 24 02/16/2024 CBC (INCL UDES DIFF/ PLT) red blood cell count 4.55 chandra on/uL 3.80-5 .10 normal Not Available [address], [address], 02/16/2024 06:25:02 02/15/20 24 02/16/2024 CBC (INCL UDES DIFF/ PLT) hemoglobin 13.4 g/dL 11.7-1 5.5 normal Not Available [address], [address], 02/16/2024 06:25:02 02/15/20 24 02/16/2024 CBC (INCL UDES DIFF/ PLT) hematocrit 40.4 % 35.0-4 5.0 normal Not Available [address], [address], 02/16/2024 06:25:02 02/15/20 24 02/16/2024 CBC (INCL UDES DIFF/ PLT) MCV 88.8 fL 80.0-1 00.0 normal Not Available [address], [address], 02/16/2024 06:25:02 02/15/20 24 02/16/2024 CBC (INCL UDES DIFF/ PLT) MCH 29.5 pg 27.0-3 3.0 normal Not Available [address], [address], 02/16/2024 06:25:02 02/15/20 24 02/16/2024 CBC (INCL UDES DIFF/ PLT) MCHC 33.2 g/dL 32.0-3 6.0 normal Not Available [address], [address], 02/16/2024 06:25:02 02/15/20 24 02/16/2024 CBC (INCL UDES DIFF/ PLT) RDW 14.3 % 11.0-1 5.0 normal Not Available [address], [address], 02/16/2024 06:25:02 02/15/20 24 02/16/2024 CBC (INCL UDES DIFF/ PLT) platelet count 192 thous and/u L 140-40 0 normal Not Available [address], [address], 02/16/2024 06:25:02 02/15/20 24 02/16/2024 CBC (INCL UDES DIFF/ PLT) MPV 10.6 fL 7.5-12 .5 normal Not Available [address], [address], 02/16/2024 06:25:02 02/15/20 24 02/16/2024 CBC (INCL UDES DIFF/ PLT) absolute neutrophils 3010 cells /uL 1500-7 800 normal Not Available [address], [address], 02/16/2024 06:25:02 02/15/20 24 02/16/2024 CBC (INCL UDES DIFF/ PLT) absolute lymphocytes 1540 cells /uL 850-39 00 normal Not Available [address], [address], 02/16/2024 06:25:02 02/15/20 24 02/16/2024 CBC (INCL UDES DIFF/ PLT) absolute monocytes 350 cells /uL 200-95 0 normal Not Available [address], [address], 02/16/2024 06:25:02 02/15/20 24 02/16/2024 CBC (INCL UDES DIFF/ PLT) absolute eosinophils 70 cells /uL 15-500 normal Not Available [address], [address], 02/16/2024 06:25:02 02/15/20 24 02/16/2024 CBC (INCL UDES DIFF/ PLT) absolute basophils 30 cells /uL 0-200 normal Not Available [address] [place], [address], 02/16/2024 06:25:02 02/15/20 24 02/16/2024 CBC (INCL UDES DIFF/ PLT) neutrophils 60.2 % normal Not Available [facility] [address], [address], 02/16/2024 06:25:02 02/15/20 24 02/16/2024 CBC (INCL UDES DIFF/ PLT) lymphocytes 30.8 % normal Not Available [facility] [address], [address], 02/16/2024 06:25:02 02/15/20 24 02/16/2024 CBC (INCL UDES DIFF/ PLT) monocytes 7.0 % normal Not Available [facility] [address], [address], 02/16/2024 06:25:02 02/15/20 24 02/16/2024 CBC (INCL UDES DIFF/ PLT) eosinophils 1.4 % normal Not Available [facility] [address], [address], 02/16/2024 06:25:02 02/15/20 24 02/16/2024 CBC (INCL UDES DIFF/ PLT) basophils 0.6 % normal Not Available [facility] [address], [address], 02/16/2024 06:25:02 02/15/20 24 02/16/2024 T4, FREE T4, free 0.9 NG/dL 0.8-1. 8 normal Not Available [facility] [address], [address], 02/16/2024 06:25:03 02/15/20 24 02/16/2024 TSH TSH 2.70 mIU/L 0.40-4 .50 normal Not Available [facility] [address], [address], 02/16/2024 06:25:03 02/25/2002/26/2024 HEMOG LOBIN A1C hemoglobin A1C 6.8 %_of_ total _HGB <5.7 high For someo ne witho ut known diabe rodrigo, a hemog lobin A1c value of 6.5% or great er indic ates that they may have diabe rodrigo and this shoul d be confi rmed with a follo w-up test. For someo ne with known diabe rodrigo, a value <7% indic ates that their diabe rodrigo is well contr olled and a value great er than or equal to 7% indic ates subop timal contr ol. A1c targe ts shoul d be indiv idual ized based on durat ion of diabe rodrigo, age, comor bid condi tions , and other consi derat ions. Curre ntly, no conse nsus exist s regar ding use of hemog lobin A1c for diagn osis of diabe rodrigo for child guanako. This test was perfo rmed on the [facility] judit c503 platf orm. Effec tive , a ward e in test platf orms from the [facility] to the [facility] jud[facility] c503 may have shift ed HbA1c resul ts indigo red to histo rical resul ts. Based on labor atory valid ation testi ng condu cted at [facility] , the [facility] platf orm relat sukh to the [facility] platf orm had an avera ge incre ase in HbA1c value of < or = 0.3%. This diffe rence is withi n accep isaak varia bilit y estab lishe d by the Nat[employer] hemog lobin Stand ardiz ation Progr am. Note that not all indiv idual s will have had a shift in their resul ts and direc t indigo rison s betwe en histo rical and curre nt resul ts for testi ng condu cted on diffe rent platf orms is not recom florentino d. Not Available [facility] [address] [address], [place], [address], 02/26/2024 02:37:00 08/19/20 24 08/20/2024 HEMOG LOBIN A1C hemoglobin A1C 6.2 %_of_ total _HGB <5.7 high For someo ne witho ut known diabe rodrigo, a hemog lobin A1c value betwe en 5.7% and 6.4% is consi stent with predi abete s and shoul d be confi rmed with a follo w-up test. For someo ne with known diabe rodrigo, a value <7% indic ates that their diabe rodrigo is well contr olled . A1c targe ts shoul d be indiv idual ized based on durat ion of diabe rodrigo, age, comor bid condi tions , and other consi derat ions. This assay resul t is consi stent with an incre ased risk of diabe rodrigo. Curre ntly, no conse nsus exist s regar ding use of hemog lobin A1c for diagn osis of diabe rodrigo for child guanako. Not Available [facility] [address] [address], [place], [address], 08/20/2024 01:43:44 09/30/19 25 09/30/2024 COLOG UARD cologuard result reportable NEGATI VE negati ve normal NEGAT SUKH TEST RESUL T. A negat sukh Colog uard resul t indic ates a low likel ihood that a color ectal cance r (CRC) or advan adi adeno ma (scott omato us polyp s with more advan adi pre-m align ant featu res) is prese nt. The chanc e that a perso n with a negat sukh Colog uard test has a color ectal cance r is less than 1 in 1500 (nega tive predi ctive value >99.9 %) or has an advan adi adeno ma is less than 5.3% (nega tive predi ctive value 94.7% ). These data are based on a prosp ectiv e cross -sect ional study of 10,00 0 indiv idual s at avera ge risk for color ectal cance r who were scree dion with both Colog uard and colon oscop y. (Ally Campos et al, N Engl J Med 2014; 370(1 4):12 86-12 97) The anitha l value (refe rence range ) for this assay is negat sukh. COLOG UARD RE-SC REENI NG RECOM MENDA TION: Perio dic color ectal cance r scree gabriela is an impor tant part of preve ntive healt hcare for asymp tomat ic indiv idual s at [facility] risk for color ectal cance r. Follo wing a negat sukh Colog uard resul t, the Ameri can Cance r Socie ty and U.S. Multi -Soci ety Task Force scree gabriela guide lines recom mend a Colog uard re-sc reeni ng inter panda of 3 years . Refer ences : Ameri can Cance r Socie ty Guide line for Color ectal Cance r Scree gabriela: https ://te w.can cer.o rg/ca ncer/ colon -rect al-ca ncer/ detec tion- diagn osis- stagi ng/ac s-rec ommen datio ns.ht ml.; Kannan DK, Jayce cox CR, Yovany RuffinK, Color ectal Cance r Scree gabriela: Recom menda tions for Physi cians and Patie nts from the U.S. Multi -Soci ety Task Force on Color ectal Cance r Scree gabriela , Am Laly grayson y 2017; 112:1 016-1 030. TEST DESCR IPTIO N: [place] [employer] site algor ithmi c omi sis of stool DNA-b iomar kers with hemog lobin immun oassa y. Quant itati ve value s of indiv idual bioma rkers are not repor table and are not assoc iated with indiv idual bioma rker resul t refer ence range s. Colog uard is inten ded for color ectal cance r scree gabriela of adult s of eithe r sex, 45 years or older , who are at [facility] for color ectal cance r (CRC) . Colog uard has been appro lalo for use by the U.S. FDA. The perfo rmanc e of Colog uard was estab lishe d in a cross secti onal study of [facility] adult s aged 50-84 . Colog uard perfo rmanc e in patie nts ages 45 to 49 years was estim ated by sub-g roup omi sis of near- age group s. Colon oscop ies perfo rmed for a posit sukh resul t may find as the most clini chinedu signi fican t lesio n: color ectal cance r [4.0% ], advan adi adeno ma (incl uding sessi le eleanor isaak polyp s great er than or equal to 1cm diame ter) [20%] or non- advan adi adeno ma [31%] ; or no color ectal neopl caridad [45%] . These estim ates are deriv ed from a prosp ectiv e cross -sect ional scree gabriela study of 0 indiv idual s at [facility] risk for color ectal cance r who were scree dion with both Colog uard and colon oscop y. (Ally Campos et al, N Engl J Med 2014; 370(1 4):12 86-12 97.) Colog uard may produ ce a false negat sukh or false posit sukh resul t (no color ectal cance r or preca ncero us polyp prese nt at colon oscop y follo w up). A negat sukh Colog uard test resul t does not guara ntee the absen ce of CRC or advan adi adeno ma (pre- cance r). The curre nt Colog uard scree gabriela inter panda is every 3 years . (Amer ican Cance r Socie ty and U.S. Multi -Soci ety Task Force ). Colog uard perfo rmanc e data in a 0 patie nt pivot al study using colon oscop y as the refer ence metho d can be acces sed at the follo wing locat ion: www.e xactl abs.c om/re sults . Addit ional descr iptio n of the Colog uard test proce ss, warni ngs and preca ution s can be found at www.c ologu zehra.jenelle om. Not Available [facility] [address], [place], [address], 10/07/2024 18:15:59 02/25/2002/25/2025 LIPID PANEL , STAND ZEHRA cholesterol, total 141 mg/dL <200 normal Not Available [facility] [place] [address] [place], [address], 02/25/2025 05:53:17 02/25/2002/25/2025 LIPID PANEL , STAND ZEHRA HDL cholesterol 55 mg/dL > or = 50 normal Not Available [facility] [address] [address] [place], [address], 02/25/2025 05:53:17 02/25/20 25 02/25/2025 LIPID PANEL , STAND ZEHRA triglyceride s 94 mg/dL <150 normal Not Available [facility] [address] [address] [address], [place], [address], 02/25/2025 05:53:17 02/25/2002/25/2025 LIPID PANEL , STAND ZEHRA LDL-choleste rol 68 mg/dL _(joselin c) normal Refer ence range : <100 Sukhjinder able range <100 mg/dL for prima ry preve ntion ; <70 mg/dL for patie nts with CHD or diabe tic patie nts with > or = 2 CHD risk facto rs. LDL-C is now calcu lated using the Aida n-Hop kins calcu meghana n, which is a valid ated novel metho d provi ding jennifer r accur acy than the Fried beverly equat ion in the estim ation of LDL-C . Aida rowe SS et al. DANNI. 2013; 310(1 9): 2061- 2068 (http ://ed ucati on.Qu Asad [employer]. com/f aq/FA Q164) Not Available [facility] [address] [address] [place], [address], 02/25/2025 05:53:17 02/25/2002/25/2025 LIPID PANEL , STAND ZEHRA chol/HDLC ratio 2.6 (calc ) <5.0 normal Not Available [address], [address], 02/25/2025 05:53:17 02/25/2002/25/2025 LIPID PANEL , STAND ZEHRA non HDL cholesterol 86 mg/dL _(joselin c) <130 normal For patie nts with diabe rodrigo plus 1 major ASCVD risk facto r, treat ing to a non-H DL-C goal of <100 mg/dL (LDL- C of <70 mg/dL ) is consi kayla almanzar optio n. Not Available [address] [place], [address], 02/25/2025 05:53:17 02/25/2002/25/2025 MAGNE SIUM magnesium 2.1 mg/dL 1.5-2. 5 normal Not Available [address] [address] [place], [address], 02/25/2025 05:53:20 02/25/2002/25/2025 COMPR EHENS SUKH METAB OLIC PANEL glucose 129 mg/dL 65-99 high Fasti ng refer ence inter panda For someo ne witho ut known diabe rodrigo, a gluco se value >125 mg/dL indic ates that they may have diabe rodrigo and this shoul d be confi rmed with a follo w-up test. Not Available [facility] [address] [address] [place], [address], 02/25/2025 05:53:21 02/25/2002/25/2025 COMPR EHENS SUKH METAB OLIC PANEL urea nitrogen (BUN) 11 mg/dL 7-25 normal Not Available [facility] [address] [address] [place], [address], 02/25/2025 05:53:21 02/25/2002/2502/25/2025 COMPR EHENS SUKH METAB OLIC PANEL creatinine 0.76 mg/dL 0.60-1 .00 normal Not Available [address], [address], 02/25/2025 05:53:21 02/25/20 25 02/25/2025 COMPR EHENS SUKH METAB OLIC PANEL eGFR 83 mL/mi n/1.7 3m2 > or = 60 normal Not Available [address], [address], 02/25/2025 05:53:21 02/25/2002/25/2025 COMPR EHENS SUKH METAB OLIC PANEL BUN/creatini ne ratio SEE NOTE: (calc ) 6-22 Not Repor isaak: BUN and Creat inine are withi n refer ence range . Not Available [address], [address], 02/25/2025 05:53:21 02/25/20 25 02/25/2025 COMPR EHENS SUKH METAB OLIC PANEL sodium 140 mmol/ L 135-14 6 normal Not Available [address], [address], 02/25/2025 05:53:21 02/25/20 25 02/25/2025 COMPR EHENS SUKH METAB OLIC PANEL potassium 4.4 mmol/ L 3.5-5. 3 normal Not Available [address], [address], 02/25/2025 05:53:21 02/25/20 25 02/25/2025 COMPR EHENS SUKH METAB OLIC PANEL chloride 104 mmol/ L 98-110 normal Not Available [address], [address], 02/25/2025 05:53:21 02/25/20 25 02/25/2025 COMPR EHENS SUKH METAB OLIC PANEL carbon dioxide 30 mmol/ L 20-32 normal Not Available [address], [address], 02/25/2025 05:53:21 02/25/2002/25/2025 COMPR EHENS SUKH METAB OLIC PANEL calcium 10.0 mg/dL 8.6-10 .4 normal Not Available [address], [address], 02/25/2025 05:53:21 02/25/2002/25/2025 COMPR EHENS SUKH METAB OLIC PANEL protein, total 7.0 g/dL 6.1-8. 1 normal Not Available [address], [address], 02/25/2025 05:53:21 02/25/2002/25/2025 COMPR EHENS SUKH METAB OLIC PANEL albumin 4.7 g/dL 3.6-5. 1 normal Not Available [address], [address], 02/25/2025 05:53:21 02/25/2002/25/2025 COMPR EHENS SUKH METAB OLIC PANEL globulin 2.3 g/dL_ (calc ) 1.9-3. 7 normal Not Available [address], [address], 02/25/2025 05:53:21 02/25/2002/25/2025 COMPR EHENS SUKH METAB OLIC PANEL albumin/glob ulin ratio 2.0 (calc ) 1.0-2. 5 normal Not Available [address], [address], 02/25/2025 05:53:21 02/25/20 25 02/25/2025 COMPR EHENS SUKH METAB OLIC PANEL bilirubin, total 0.5 mg/dL 0.2-1. 2 normal Not Available [address], [address], 02/25/2025 05:53:21 02/25/2002/25/2025 COMPR EHENS SUKH METAB OLIC PANEL alkaline phosphatase 46 U/L 37-153 normal Not Available [address], [address], 02/25/2025 05:53:21 02/25/2002/25/2025 COMPR EHENS SUKH METAB OLIC PANEL AST 15 U/L 10-35 normal Not Available [address], [address], 02/25/2025 05:53:21 02/25/20 25 02/25/2025 COMPR EHENS SUKH METAB OLIC PANEL ALT 15 U/L 6-29 normal Not Available [address], [address], 02/25/2025 05:53:21 02/25/20 25 02/25/2025 CBC (INCL UDES DIFF/ PLT) white blood cell count 5.3 thous and/u L 3.8-10 .8 normal Not Available [address], [address], 02/25/2025 05:53:22 02/25/2002/25/2025 CBC (INCL UDES DIFF/ PLT) red blood cell count 4.46 chandra on/uL 3.80-5 .10 normal Not Available [address], [address], 02/25/2025 05:53:22 02/25/2002/25/2025 CBC (INCL UDES DIFF/ PLT) hemoglobin 12.9 g/dL 11.7-1 5.5 normal Not Available [address], [address], 02/25/2025 05:53:22 06/24/02/25/2025 CBC (INCL UDES DIFF/ PLT) hematocrit 40.3 % 35.0-4 5.0 normal Not Available [address], [address], 02/25/2025 05:53:22 02/25/2002/25/2025 CBC (INCL UDES DIFF/ PLT) MCV 90.4 fL 80.0-1 00.0 normal Not Available [address], [address], 02/25/2025 05:53:22 02/25/2002/25/2025 CBC (INCL UDES DIFF/ PLT) MCH 28.9 pg 27.0-3 3.0 normal Not Available [address], [address], 02/25/2025 05:53:22 02/25/2002/25/2025 CBC (INCL UDES DIFF/ PLT) MCHC 32.0 g/dL 32.0-3 6.0 normal For adult s, a sligh t decre ase in the calcu lated MCHC value (in the range of 30 to 32 g/dL) is most likel y not clini chinedu signi cassie t; mario er, it shoul d be inter prete d with cauti on in [facility] n with other red cell saurav eters and the patie nt's clini joselin condi tion. Not Available [address], [address], 02/25/2025 05:53:22 02/25/2002/25/2025 CBC (INCL UDES DIFF/ PLT) RDW 13.4 % 11.0-1 5.0 normal Not Available [facility] [address], [address], 02/25/2025 05:53:22 02/25/2002/25/2025 CBC (INCL UDES DIFF/ PLT) platelet count 232 thous and/u L 140-40 0 normal Not Available [address], [address], 02/25/2025 05:53:22 02/25/2002/25/2025 CBC (INCL UDES DIFF/ PLT) MPV 10.5 fL 7.5-12 .5 normal Not Available [address], [address], 02/25/2025 05:53:22 02/25/2002/25/2025 CBC (INCL UDES DIFF/ PLT) absolute neutrophils 3042 cells /uL 1500-7 800 normal Not Available [address], [address], 02/25/2025 05:53:22 02/25/2002/25/2025 CBC (INCL UDES DIFF/ PLT) absolute lymphocytes 1696 cells /uL 850-39 00 normal Not Available [address], [address], 02/25/2025 05:53:22 02/25/2002/25/2025 CBC (INCL UDES DIFF/ PLT) absolute monocytes 408 cells /uL 200-95 0 normal Not Available [address], [address], 02/25/2025 05:53:22 02/25/2002/25/2025 CBC (INCL UDES DIFF/ PLT) absolute eosinophils 122 cells /uL 15-500 normal Not Available [address], [address], 02/25/2025 05:53:22 02/25/2002/25/2025 CBC (INCL UDES DIFF/ PLT) absolute basophils 32 cells /uL 0-200 normal Not Available [address], [address], 02/25/2025 05:53:22 02/25/20 25 02/25/2025 CBC (INCL UDES DIFF/ PLT) neutrophils 57.4 % normal Not Available [address], [address], 02/25/2025 05:53:22 02/25/20 25 02/25/2025 CBC (INCL UDES DIFF/ PLT) lymphocytes 32.0 % normal Not Available [address], [address], 02/25/2025 05:53:22 02/25/20 25 02/25/2025 CBC (INCL UDES DIFF/ PLT) monocytes 7.7 % normal Not Available [address], [address], 02/25/2025 05:53:22 02/25/20 25 02/25/2025 CBC (INCL UDES DIFF/ PLT) eosinophils 2.3 % normal Not Available [address], [address], 02/25/2025 05:53:22 02/25/20 25 02/25/2025 CBC (INCL UDES DIFF/ PLT) basophils 0.6 % normal Not Available [address], [address], 02/25/2025 05:53:22 02/25/2002/25/2025 T4, FREE T4, free 1.0 NG/dL 0.8-1. 8 normal Not Available [address], [address], 02/25/2025 05:53:24 02/25/20 25 02/25/2025 TSH TSH 3.00 mIU/L 0.40-4 .50 normal Not Available [address], [address], 02/25/2025 05:53:25 02/25/20 25 02/25/2025 VITAM IN B12 vitamin B12 370 pg/mL 200-11 00 normal Pleas e Note: Altho ugh the refer ence range for vitam in B12 is 200-1 100 pg/mL , it has been repor isaak that betwe en 5 and 10% of patie nts with value s betwe en 200 and 400 pg/mL may exper ience neuro psych iatri c and hemat ologi c abnor malit ies due to occul t B12 defic iency ; less than 1% of patie nts with value s above 400 pg/mL will have sympt oms. Not Available [facility] [address] [place], [address], 02/25/2025 05:53:26 02/25/2002/25/2025 HEMOG LOBIN A1C hemoglobin A1C 6.1 %_of_ total _HGB <5.7 high For someo ne witho ut known diabe rodrigo, a hemog lobin A1c value betwe en 5.7% and 6.4% is consi stent with predi abete s and shoul d be confi rmed with a follo w-up test. For someo ne with known diabe rodrigo, a value <7% indic ates that their diabe rodrigo is well contr olled . A1c targe ts shoul d be indiv idual ized based on durat ion of diabe rodrigo, age, comor bid condi tions , and other consi derat ions. This assay resul t is consi stent with an incre ased risk of diabe rodrigo. Curre ntly, no conse nsus exist s goldie garcia use of hemog lobin A1c for diagn osis of diabe rodrigo for child guanako. Not Available [facility] [address] [place], [address], 02/25/2025 05:53:27 02/25/2002/25/2025 ALBUM IN, RANDO M URINE W/CRE ATINI NE creatinine, random urine 155 mg/dL 20-275 normal Not Available [facility] [address] [place], [address], 02/25/2025 06:07:35 02/25/20 25 02/25/2025 ALBUM IN, RANDO M URINE W/CRE ATINI NE albumin, urine 0.7 mg/dL see note: normal Refer ence Range : Refer ence Range Not estab lishe d Not Available [address] [address] [place], [address], 02/25/2025 06:07:35 02/25/20 25 02/25/2025 ALBUM IN, RANDO M URINE W/CRE ATINI NE albumin/crea tinine ratio, random urine 5 mg/g_ creat <30 normal The ADA defin es abnor malit ies in album in excre tion as follo ws: Album inuri a Categ ory Resul t (mg/g creat inine ) Anitha l to Mildl y incre ased <30 Moder ately incre ased 30-29 9 Sever li incre ased > OR = 300 The ADA recom mends that at least two of three speci mens colle cted withi n a 3-6 month perio d be abnor mal befor e consi gilberto g a patie nt to be withi n a diagn ostic categ ory. Not Available [address] [address] [place], [address], 02/25/2025 06:07:35 01/17/20 24 01/17/2024 XR, esoph agram No observ ation record ed. [address], [address], 01/17/2024 16:59:14 01/17/20 24 01/17/2024 XR, chest , 2 view No observ ation record ed. [address], [address], 01/18/2024 07:35:06 01/18/20 24 01/17/2024 PFT, compl ete No observ ation record ed. [address], [address], 01/18/2024 09:54:42 01/29/20 24 01/29/2024 CT, abdom en + pelvi s, w/o contr ast No observ ation record ed. [place] [address], [place], [address], 01/29/2024 08:50:32 Result Notes None recorded. Problems Name Problem SNOMED Code Status Onset Date Resolution Date Notes Provider Name and Address Organization Details Recorded Time Disorder of trunk 921040013 Active Not Available [facility] 3 07:46:36 Ventricula r premature beats 93994251 Active Not Available [facility] 3 07:46:36 Lymphadeni tis 83830669 Active Not Available [facility] 3 07:46:36 Localized, primary osteoarthr itis of the pelvic region and thigh 623836983 Active Not Available [facility] 3 07:46:36 Pure hyperchole sterolemia 578449766 Active Not Available [facility] 3 07:46:36 Low back pain 222452912 Active Not Available [facility] 3 07:46:36 Vitamin D deficiency 23147631 Active Not Available [facility] 3 07:46:36 Anxiety 27588274 Active Not Available [facility] 3 07:46:36 Pain of hip region 54820963 Active Not Available [facility] 3 07:46:36 Tinnitus 04733231 Active Not Available [facility] 3 07:46:36 Epigastric pain 94778959 Active Not Available [facility] 3 07:46:36 Osteoarthr itis 074851877 Active 2016 Not Available [facility] 3 07:46:36 Depressive disorder 18631047 Active 2016 Not Available [facility] 3 07:46:36 Subclinica l hypothyroi dism 44215278 Active 2019 Not Available [facility] 3 07:46:36 Acute sinusitis 62644027 Active 2021 Not Available [facility] 3 07:46:36 Headache 17979039 Active 2021 Not Available [facility] 3 07:46:36 Thyrogloss al duct cyst 78946755 Active 2021 Not Available [facility] 3 07:46:36 Obese class I 6726929608714 07 Active 2022 Not Available [facility] 3 07:46:36 Pain of left knee joint 9076979680432 07 Active 2022 Not Available [facility] 3 07:46:36 Pain of bilateral knee joints 9415334286887 04 Active 2022 Not Available [facility] 3 07:46:36 Osteoarthr itis of right knee joint 7298439309342 00 Active 2022 Not Available [facility] 3 07:46:36 Pain of bilateral hip joints 2146234292857 9100 Active 2022 Not Available [facility] 3 07:46:36 Tear of medial meniscus of knee 891763786 Active 2022 Not Available [facility] 3 07:46:36 Tear of medial meniscus of knee 093062564 Active 2022 Not Available [facility] 3 07:46:36 Acute bronchitis 13483627 Active 2022 Klaudia Shea MD 2100 [address], [address], [place], [address] , [facility] [place] [facility] 3 15:10:43 Hyperglyce dona 13254728 Active 2022 Klaudia Shea MD [address], [place], [address] , [facility] [place] [facility] 3 15:16:33 Wheezing symptom 290902816 Active 2023 Klaudia Shea MD [address], [place], [address] , [facility] [place] [facility] 4 17:10:44 Wheezing 97033423 Active 2023 Melany Ramires CMA null, [place] [facility] [employer] 4 13:51:12 Herpes zoster 5303176 Active 2023 Klaudia Shea MD [address], [place], [address] , [facility] [employer] [employer] 4 17:07:23 Vertigo 515181249 Active 2023 Klaudia Shea MD [address], [place], [address] , [employer] 4 12:43:15 Gastroesop hageal reflux disease 875200984 Active 2023 Klaudia Shea MD [address], [place], [address] , [employer] 4 14:55:21 Type 2 diabetes mellitus 05129007 Active 2024 Klaudia Shea MD [address], [address] [address], [place], [address] , [employer] 5 15:06:51 Dizziness 802142804 Active 2024 Melany Ramires CMA null, [facility] [facility] [employer] 5 12:19:38 Problem Notes None recorded. Procedures Surgical History Date Name Laterality Status Provider Name and Address Organization Details Recorded Time 3 Medicare Wellness CPT Code, subsequent completed Latoya Van RN [facility] [employer] 08/10/2023 15:01:34 3 Ortho - Cortisone Injection completed Gordon Bauman MD [address], [place], [address], [employer] [employer] 03/29/2023 13:09:39 1 Most Recent Bone Density completed Not Available [facility] 11/01/2022 14:08:41 Imaging Results None recorded. Procedure Notes None recorded. Medical Equipment None Reported. Allergies No known drug allergies Medications Name Sig Start Date Stop Date Status Note LastModified by Organization Details LastModified Time amoxicillin 500 mg capsule Take 1 capsule 3 times a day by oral route for 10 days. active Not Available Not Available No t Available metformin 500 mg tablet TAKE 1 TABLET BY MOUTH TWICE DAILY 2024 active Not Available Not Available Not Avai lable prednisone 10 mg tablet 02/19 completed Not Available Not Available Not Available atorvastati n 20 mg tablet TAKE 1 TABLET BY MOUTH DAILY 2024 active Not Available Not Available Not Avai lable trazodone 50 mg tablet TAKE 1 TABLET BY MOUTH EVERY DAY AT BEDTIME NEEDED 03/29 completed Not Available Not Available Not Available azithromyci n 250 mg tablet TAKE 2 TABLETS (500 MG) BY ORAL ROUTE ONCE DAILY FOR 1 DAY THEN 1 TABLET (250 MG) BY ORAL ROUTE ONCE DAILY FOR 4 DAYS 08/14 completed Not Available Not Available Not Available benzonatate 200 mg capsule TAKE 1 CAPSULE BY MOUTH THREE TIMES DAILY 11/12 completed Not Available Not Available Not Available valacyclovi r 1 gram tablet TAKE 1 TABLET BY MOUTH THREE TIMES DAILY FOR 7 DAYS 02/19 completed Not Available Not Available Not Available hydrocodone 5 mg-acetamin ophen 325 mg tablet TAKE 1 TABLET BY MOUTH EVERY 6 HOURS 08/10 completed Not Available Not Available Not Available meloxicam 15 mg tablet Take 1 tablet every day by oral route. 04/21 completed Not Available Not Available Not Available sertraline 100 mg tablet TAKE 1 TABLET BY MOUTH DAILY 2024 active Not Available Not Available Not Avai lable omeprazole 40 mg capsule,del ayed release TAKE 1 CAPSULE BY MOUTH DAILY 02/19 completed Not Available Not Available Not Available aspirin 81 mg tablet,pratima yed release Take 1 tablet every day by oral route. 01/12 completed Not Available Not Available Not Available prednisone 10 mg tablets in a dose pack Take 1 tab by mouth, 3 times a day for 3 daysTake 1 tab by mouth 2 times a day for 2 daysTake 1 tab by mouth once a day for 1 day 08/10 completed Not Available Not Available Not Available prednisolon e acetate 1 % eye drops,suspe nsion 08/04 completed Not Available Not Available Not Available cyanocobala min (vit B-12) 500 mcg tablet Take 1 tablet every day by oral route. 03/29 completed Not Available Not Available Not Available Kenalog 10 mg/mL suspension for injection Take 20 mg by injection route. 08/10 completed [facility]: [phone] Not Available Not Available Not Available meclizine 25 mg tablet TAKE 1 TABLET BY MOUTH THREE TIMES DAILY active Not Available Not Available No t Available cephalexin 500 mg capsule TK FOUR CS PO 1 HOUR B DAPP 02/19 completed Not Available Not Available Not Available ibuprofen 400 mg tablet TAKE 1 TABLET BY MOUTH EVERY 6 HOURS NEEDED FOR PAIN 02/19 completed Not Available Not Available Not Available mometasone 0.1 % topical ointment APPLY DIRECTED TO LEFT ABDOMEN EVERY NIGHT AT BEDTIME 02/03 completed Not Available Not Available Not Available zolpidem 5 mg tablet one daily at bedtime 03/11 completed Not Available Not Available Not Available gabapentin 100 mg capsule TAKE 1 CAPSULE BY MOUTH THREE TIMES DAILY FOR 10 DAYS 02/19 completed Not Available Not Available Not Available ergocalcife rol (vitamin D2) 1,250 mcg (50,000 unit) capsule TAKE 1 CAPSULE BY MOUTH EVERY WEEK 02/02 completed Not Available Not Available Not Available lorazepam 1 mg tablet TAKE 1 TABLET BY MOUTH THREE TIMES DAILY NEEDED FOR ANXIETY 2024 active Not Available Not Available Not Avai lable azelastine 137 mcg (0.1 %) nasal spray USE 1 SPRAY IN EACH NOSTRIL EVERY 12 HOURS active Not Available Not Available No t Available methylpredn isolone 4 mg tablets in a dose pack FOLLOW PACKAGE DIRECTION S 08/14 completed Not Available Not Available Not Available doxycycline hyclate 100 mg tablet TAKE 1 TABLET BY MOUTH TWICE DAILY X10 DAYS 11/12 completed Not Available Not Available Not Available metoclopram tee 10 mg tablet TAKE 1 TABLET BY MOUTH THREE TIMES DAILY BEFORE MEALS active Not Available Not Available No t Available PreserVisio n AREDS 2,148 mcg-113 mg-45 mg-17.4 mg tablet Take 1 tablet every day by oral route. 2021 active Not Available Not Available Not Avai lable Multivitami n 50 Plus tablet Take 1 tablet every day by oral route. 2017 active Not Available Not Available Not Avai lable Vitamin D3 125 mcg (5,000 unit) tablet Take 1 tablet every day by oral route. 2021 active Not Available Not Available Not Avai lable Xarelto 10 mg tablet 02/27 completed Not Available Not Available Not Available ropivacaine (PF) 5 mg/mL (0.5 %) injection solution Take 20 mg by injection route. 08/10 completed [facility] [phone] Not Available Not Available Not Available Fish Oil 1,000 mg (120 mg-180 mg) capsule Take 1 capsule every day by oral route. active Not Available Not Available No t Available Vitals Date Recorded Body height Body mass index (BMI) Body weight Heart rate Body temperature Oxygen saturation Systolic And Diastolic Provider Name and Address Organization Details Last Updated DateTime 4 167.64 cm 32.7 kg/m2 33191.4 5 g 91 /min 97 [degF] 95 % 138/80 mm[Hg] [employer] 4 16:33:06 Date Recorded Body height Body mass index (BMI) Body weight Heart rate Body temperature Oxygen saturation Systolic And Diastolic Provider Name and Address Organization Details Last Updated DateTime 4 167.64 cm 32.8 kg/m2 13792.2 5 g 83 /min 97.9 [degF] 97 % 128/80 mm[Hg] ADRIEL Smith [employer] [facility] [employer] 4 16:59:39 Date Recorded Body height Body mass index (BMI) Body weight Heart rate Body temperature Oxygen saturation Systolic And Diastolic Provider Name and Address Organization Details Last Updated DateTime 5 167.64 cm 31.5 kg/m2 26277.5 1 g 103 /min 97 [degF] 97 % 120/64 mm[Hg] [employer] 5 14:55:10 Date Recorded Body height Body mass index (BMI) Body weight Heart rate Body temperature Oxygen saturation Systolic And Diastolic Provider Name and Address Organization Details Last Updated DateTime 3 167.64 cm 32.6 kg/m2 62276.6 6 g 97 /min 97 [degF] 97 % 122/70 mm[Hg] [employer] [facility] [employer] 3 14:54:18 Date Recorded Pain severity - 0-10 verbal numeric rating [Score] - Reported Provider Name and Address Organization Details Last Updated DateTime 08/10/2023 0 Latoya Van RN [facility] 08/10/2023 15:01:54 Date Recorded Body height Body weight Heart rate Body temperature Oxygen saturation Systolic And Diastolic Provider Name and Address Organization Details Last Updated DateTime 4 167.64 cm 09006.2 9 g 76 /min 97 [degF] 95 % 120/82 mm[Hg] ADRIEL Smith [facility] 4 14:47:05 Social History Question Answer Notes LastModified by Organizat ion Details LastModified Time Tobacco Smoking Status Never Smoker Not Available [facility] 11/01/2022 14:08:31 Do You Have An Advance Directive? Yes MIGRATION.[id number] [id number] Information not available 11/01/2022 Are You Blind Or Do You Have Difficulty Seeing? No MIGRATION.84738 90206 Information not available 11/01/2022 What Is Your Level Of Caffeine Consumption? Occasional MIGRATION.27623 94612 Information not available 11/01/2022 In The 14 Days Before Symptom Onset, Have You Had Close Contact With A Laboratory-confir med COVID-19 While That Case Was Ill? No MIGRATION.22368 65012 Information not available 11/01/2022 In The 14 Days Before Symptom Onset, Have You Had Close Contact With A Person Who Is Under Investigation For COVID-19 While That Person Was Ill? No MIGRATION.74312 66249 Information not available 11/01/2022 Are You Deaf Or Do You Have Serious Difficulty Hearing? No MIGRATION.66518 30903 Information not available 11/01/2022 What Type Of Diet Are You Following? REGULAR MIGRATION.96672 12470 Information not available 11/01/2022 Have There Been Any Changes To Your Family Or Social Situation? No [email or web address] Information no t available 08/10/2023 What Is The Fluoride Status Of Your Home? Unknown MIGRATION.50535 06256 Information not available 11/01/2022 Are There Any Guns Present In Your Home? No MIGRATION.53939 95864 Information not available 11/01/2022 Do You Use Insect Repellent Routinely? No MIGRATION.73044 05343 Information not available 11/01/2022 Where Do You Live? SingleLevelHouse [email or web address] Information not available 08/10/2023 Guns Present In The Home? No Information not available 08/10/2023 Are You Able To Care For Yourself? Yes [email or web address] Information not available 08/10/2023 Are You Blind Or Do Yo Have Difficulty Seeing? No [email or web address] Information not available 08/10/2023 Are You Deaf Or Do You Have Serious Difficulty Hearing? No [email or web address] Information not available 08/10/2023 Live Alone Of With Others? Alone [email or web address] Information not available 08/10/2023 Do You Have A Medical Power Of [employer]? Yes MIGRATION.24614 54269 Information not available 11/01/2022 What Was The Date Of Your Most Recent Tobacco Screening? 08/10/2023 [email or web address] Information not available 08/10/2023 Do You Have Any Pets? No MIGRATION.10365 71779 Information not available 11/01/2022 Do You Use Your Seat Belt Or Car Seat Routinely? Yes MIGRATION.14336 31272 Information not available 11/01/2022 Do You Have Smoke And Carbon Monoxide Detectors In Your Home? Yes MIGRATION.62256 86510 Information not available 11/01/2022 Are You Passively Exposed To Smoke? No MIGRATION.99405 59714 Information not available 11/01/2022 Are There Any Smokers In Your House? No MIGRATION.36749 65913 Information not available 11/01/2022 Do You Use Sunscreen Routinely? No MIGRATION.30262 17144 Information not available 11/01/2022 Has Tobacco Cessation Counseling Been Provided? No N/A MIGRATION.29509 18775 Information not available 11/01/2022 Have You Recently Traveled Abroad? No MIGRATION.95350 20900 Information not available 11/01/2022 Do You Have Difficulty Walking Or Climbing Stairs? No MIGRATION.76587 07280 Information not available 11/01/2022 Do You Have Any Dietary Restrictions? No MIGRATION.22075 05253 Information not available 11/01/2022 Sex: Unknown Functional Status Question Answer Note LastModified by Organizat ion Details LastModified Time Do you use any illicit or recreational drugs? No MIGRATION.6717913 026 Information not available 11/01/2022 Do you or have you ever used any other forms of tobacco or nicotine? No MIGRATION.3612550 026 Information not available 11/01/2022 What is your level of alcohol consumption? None MIGRATION.9981438 026 Information not available 11/01/2022 Do you have transportation difficulties? No MIGRATION.3328577 026 Information not available 11/01/2022 Are you able to walk independently without assistance or assistive devices? YESWOREST MIGRATION.5804007 026 Information not available 11/01/2022 Do you have difficulty doing errands alone? No MIGRATION.6174304 026 Information not available 11/01/2022 Are you able to care for yourself independently? Yes MIGRATION.9605320 026 Information not available 11/01/2022 Do you have difficulty dressing, bathing, grooming, or toileting? No MIGRATION.1724479 026 Information not available 11/01/2022 What is your exercise level? Moderate MIGRATION.1881325 026 Information not available 11/01/2022 Mental Status Question Answer Note LastModified by Organizat ion Details LastModified Time Do you feel stressed (tense, restless, nervous, or anxious, or unable to sleep at night)? [id number] MIGRATION.[id number] 26 Information not available 11/01/2022 Do you have difficulty concentrating, remembering or making decisions? No MIGRATION.65638839 26 Information not available 11/01/2022 Family History Relationship Description Onset Age of this Age Resolved Age Notes LastModified by Organization Details LastModified Time Sister Family history of malignant neoplasm [email or web address] Not available 03/29 12:50:10 Mother Hypertensive disorder [email or web address] Not available 03/29 12:50:20 Notes:Mother 94 y/o hx of hi gh cholesterol Father 96 y/o hx of DM and Cholesterol Two sisters and one brother all living and in good health Medical History Condition Response BLINDNESS N NERVE DISEASE N RHEUMATIC FEVER N BLADDER PROBLEMS N KIDNEY STONES N MRSA N OTHER # 1 N POLIO N LUNG DISEASE/DISORDER N RADIATION / CHEMOTHERAPY N COPD N Other # 2 N BLOOD DISEASES N EAR OR HEARING PROBLEMS N MUMPS N BOWEL PROBLEMS N DEPRESSION (INCLUDING POST ) N STROKE/TIA N ULCERS N BENIGN PROSTATIC HYPERPLASIA N MEASLES N MYOCARDIAL INFARCTION N OBESITY N GERD/NAUSEA N ANEURYSM N URINARY/BLADDER/KIDNEY PROBLEMS N CORONARY ARTERY DISEASE (CAD) N ADDICTION CONCERNS N Impotence N ENDOMETRIOSIS N USE OF BLOOD THINNERS N SKIN PROBLEMS N GASTROINTESTINAL DISORDER N PERIPHERAL VASCULAR DISEASE N MUSCLE,JOINT OR BONE PROBLEMS N GASTROINTESTINAL BLEEDING N BLOOD CLOTS N ASTHMA N CATARACTS N USE OF NSAIDS Y ERECTILE DYSFUNCTION N VARICOSITIES N GI PROBLEMS N Low Testosterone N INFERTILITY N AIDS/HIV N CHEMOTHERAPY / RADIATION N LIVER DISEASE N MALE HYPOGONADISM N HYPERTENSION N Deficiency N TOURETTE'S N ANXIETY DISORDER Y BLOOD TRANSFUSION N ANEMIA/BLOOD DISORDER Y CHRONIC EAR INFECTIONS N BRONCHITIS N TUBERCULOSIS N GLAUCOMA N FOOT PROBLEM N DIVERTICULITIS N SLEEP APNEA N CHICKENPOX N INFECTIOUS DISEASE N PROSTATE N HEART ARRHYTHMIA N INSOMNIA N HIGH CHOLESTEROL / HYPERLIPIDEMIA Y EYE PROBLEMS N HYPERTHYROIDISM N EDEMA N CHRONIC PAIN SYNDROME N HYPOTHYROIDISM N CAROTID BLOCKAGE N CONSTIPATION N BACK / NECK PROBLEMS N HAVE YOU BEEN HOSPITALIZED OR SEEN IN [facility] IN THE PAST YEAR ? N ATHEROSCLEROSIS N BREAST PROBLEMS N DIALYSIS N ECZEMA N OSTEOPOROSIS Y ARTHRITIS Y NO SIGNIFICANT PAST MEDICAL HISTORY N APPENDICITIS N DIABETES, TYPE N BAD TEETH N ENT N HEARTBURN / REFLUX N AUTISM SPECTRUM DISORDER (ASD) N HEPATITIS / LIVER DISEASE N GOUT N SLEEP DISORDER N ALZHEIMER'S DISEASE N Brain Problems N DEMENTIA N HERPES N SEIZURES/EPILEPSY N HEADACHES/MIGRAINES N VASCULAR DISEASE N PACEMAKER N Blood Disorder N DIZZINESS N HEART DISEASE/HEART PROBLEMS N KIDNEY DISEASE N MULTIPLE SCLEROSIS N CANCER: SPECIFY N CARDIAC ARRHYTHMIA N ATRIAL FIBRILLATION N Gall Stones N PULMONARY EMBOLISM N AUTOIMMUNE DISEASE N Gynecological History Statement/Question Response Date of Last Mammogram 11/03/2020 Most Recent Bone Density 11/03/2020 Obstetrics History GPAL:G 0 P 0 0 0 0 Immunizations Vaccine Type Date Status Note Provider [facility] e and Address Organization Details Recorded Time SARS-COV-2 (COVID-19) vaccine, UNSPECIFIED 4 completed Ly mendez [employer] 2023 16:33:43 Influenza, high-dose, quadrivalent, PF 3 completed Klaudia Shea MD [address] [place] [address], [address], [employer] [facility] [employer] 08/10/2023 15:15:41 SARS-COV-2 (COVID-19) vaccine, UNSPECIFIED 1 completed Not Available [facility] 07/04/2023 07:46:37 SARS-COV-2 (COVID-19) vaccine, UNSPECIFIED 1 completed Not Available [facility] 07/04/2023 07:46:37 SARS-COV-2 (COVID-19) vaccine, UNSPECIFIED 1 completed Not Available [facility] 07/04/2023 07:46:37 Influenza, high-dose, quadrivalent, PF 1 completed Not Available [facility] 07/04/2023 07:46:37 Influenza, high-dose, quadrivalent, PF 2 completed Not Available [facility] 07/04/2023 07:46:37 Influenza, high-dose, quadrivalent, PF 0 completed Not Available [facility] 07/04/2023 07:46:37 pneumococcal polysaccharide PPV23 0 completed Not Available [facility] 07/04/2023 07:46:37 Pneumococcal conjugate PCV 13 8 completed Not Available [facility] 07/04/2023 07:46:37 Influenza, split virus, trivalent, preservative 3 completed Not Available [facility] 07/04/2023 07:46:37 Influenza, high-dose, trivalent, PF 4 completed Klaudia Shea MD [address] [place] [address], [address], [facility] 08/14/2024 14:54:53 Past Encounters Encounter ID Performer Location Encounter Start Date Encounter Closed Date Diagnosis/Indication Diagnosis SNOMED-CT Code Diagnosis ICD10 Code Diagnosis IMO Codes Diagnosis Note [id number] [facility] [place] [address] [place] [address] [place] [address] 02/01/2021 00:00:00 02/01/2021 16:43:55 [id number] MD [facility] [place] [address] [place] [address] [place] [address] 05/13/2021 00:00:00 05/13/2021 12:12:59 [id number] [facility]udia [facility] [address] [place] [address] [place] [address] 06/10/2021 00:00:00 06/10/2021 14:51:01 [id number] Klaudia Shea MD [facility] Internal Med [place] [address] [place] [address] [place] [address] 10/14/2021 00:00:00 10/14/2021 14:36:29 [id number] Klaudia Shea MD [facility] Internal [place] [address] [place] [address] [place] [address] 02/03/2022 00:00:00 02/03/2022 15:16:42 [id number] Klaudia Shea MD [facility] Internal Med [place] [address] [place] [address] [place] [address] 05/16/2022 00:00:00 05/16/2022 12:51:37 [id number] Klaudia Shea MD [facility] Internal Med [place] [address] [place] [address] [place] [address] 08/04/2022 00:00:00 08/04/2022 14:56:06 [id number] Klaudia Shea MD [facility] Internal Med [place] [address] [place] [address] [place] [address] 02/02/2023 14:25:55 02/02/2023 15:47:47 Pure hypercholesterolemia 198213777 E78.00 Subclinica l hypothyroidism 98791614 E02 Depressive disorder 3548 9007 F32.9 Obese class I 5229799434 08883 E66.9 Vitamin D deficiency 347 74824 E55.9 [id number] Gordon Bauman MD [facility] [place] [address] [place] [address] 03/29/2023 12:32:28 03/29/2023 13:35:55 Pain of bilateral knee joints 3462246595 91964 M25.561 M25.562 History of total replacement of bilateral hip joints 1854228768 025827 Z96.643 Tear of me dial meniscus of knee 831692687 S83.241D Pain of bi lateral hip joints 6076761035 3900715 M25.551 M25.552 [id number] Gordon Bauman MD [facility] [place] [address] [place] [address] 04/05/2023 10:35:01 04/05/2023 11:45:08 Pain of left knee joint 6840622418 54326 M25.562 Tear of me dial meniscus of knee 331390389 S83.242A Pre-surger y evaluation 936190229 Z01.299 [id number] Gordon Bauman MD [facility] [place] [address] [place] [address] 05/01/2023 14:28:04 05/01/2023 15:03:51 Pain of left knee joint 2276199987 39639 M25.562 Tear of me dial meniscus of knee 361819829 S83.242A Postoperative visit 1836 08496 Z09 [id number] Gordon Bauman MD [facility] [place] [address] [place] [address] 05/15/2023 14:38:06 05/15/2023 14:51:05 Tear of medial meniscus of knee 119965776 S83.242D [id number] Klaudia Shea MD [facility] Internal Med [place] [address] [place] [address] 08/10/2023 14:46:27 08/10/2023 15:20:14 Administration of influenza vaccine 81566923 Z23 Adult heal th examination 380147091 Z00.00 Screening for disorder 159235515 Z13.9 Pure hypercholesterolemia 922026434 E78.00 Subclinica l hypothyroidism 60889080 E02 Obese class I 9610829047 58384 E66.9 Acute bronchitis 7453535 2 J20.9 Hyperglycemia 37523326 R 73.9 [id number] Klaudia Shea MD [facility] Internal Med [place] [address] [place] [address] 2023 16:08:55 2023 17:18:52 Wheezing symptom 879876979 R06.2 [id number] Klaudia Shea MD [facility] [place] [place] Internal Med [facility] [address] [place] [address] 02/07/2024 16:54:19 02/07/2024 17:16:38 Depressive disorder 59170522 F32.9 Pure hypercholesterolemia 524064540 E78.00 Subclinica l hypothyroidism 77479738 E02 Herpes zoster 6384989 B0 2.9 Obese class I 2583704220 68434 E66.9 [id number] Klaudia Shea MD [facility] [place] [place] Primary Care [facility] [address] [facility] [address] [address] [place] [address] 08/14/2024 14:34:35 08/14/2024 16:22:56 Administration of influenza vaccine 56163587 Z23 Obese class I 0979088244 39443 E66.9 Pure hypercholesterolemia 578416784 E78.00 Type 2 jamar betes mellitus without complication 621428817 E11.9 Gastroesop hageal reflux disease 118493324 K21.9 [id number] Klaudia Shea MD [facility] [place] [place] Internal Med [facility] [address] [facility] [address] [place] [address] 02/19/2025 14:45:01 02/19/2025 15:19:31 General examination of patient 637670053 Z00.00 [id number] Pure hypercholesterolemia 228043622 E78.00 Gastroesop hageal reflux disease 552709934 K21.9 Depressive disorder 3548 9007 F32.9 Obese class I 0587357075 47149 E66.9 Type 2 jamar betes mellitus 04643367 E11.9 [id number] Health Concerns Section Related Observation LastModified by Organization Detai ls LastModified Time None Recorded Concern Status LastModified by Organization Details LastModified Time None Recorded Advance Directives Directive Y: Payers Insurance Date Sequence Insurance Name Policy Number Policy Bustamante Covered Member ID Bustamante Member ID Guarantor Name 02/19/2025 [facility] Meka Tobar AARP AARP Meka Tobar 02/19/2025 1 [place] Meka Tobar [id number] Meka Tobar 02/19/2025 2 AARP (MEDICARE SUPPLEMENT) Meka Tobar [id number] Meka Tobar Notes Date Note Type Note Provider Name and Address Organization Details Recorded Time 3 text/html Patient Name: Meka TobarDate Of Service: Sunday ( 08.10.2023 ): 1950 Age: 72 There has been approximately a 4 lb weight loss since 02/02/2023. This represents approximately a 1.9% change in weight. Weight change attributable to lifestyle changes. Vital Signs:Blood Pressure: Sitting Rt. Arm 122/70Pulse: Sitting 97 /min and RegularRespiratory Rate: 12Height 66 in or 1.7 mWeight 202 lb or 91.6 kgBMI 32.6Temperature: 97 F or 36.1 CPulse Oximetry: 97 % at rest on no oxygen Chief Complaint: Addressed in HPI Problems or conditions discussed in the HPI were the only ones reviewed during the encounter.Only social and family history addressed in the HPI were reviewed during this encounter. A significant, separate E/M service was performed to evaluate the current and new problems. Attendant(s): NoneConstitutional and Systemic Symptoms:none Medication Reconciliation: from medication list. Xnqwdjdqlkz41/21/2023: Normal mammogram no evidence of any malignancy. History of Present Illness Reviewed the findings of the preventative health visit. Addressed all areas with the patient, patient's family or caregivers. Preventative examinations and testing immunizations - vaccinations, colonic neoplasm screening, mammograms and DEXA Scan all reviewed and ordered where patient was amenable to the recommendations. Cognitive function was normal. Depression addressed and where necessary medications were adjusted or instituted. End of life and living will briefly discussed with patient and where these can be filled out and legally executed. Other blood and imaging studies were ordered if considered necessary. Other recommendations may be found in the encounter note. #1. Type II Hypercholesterolaemia: Currently taking medication and tolerating well. No interval complaints of any muscle pain or arthralgia. No significant liver changes with medications. Last lipid panel: fair control. Therapy reviewed regarding treatment of cholesterol management and include diet and Lipitor. #2. Bronchitis: Complains of cough and chest congestion that began several weeks ago. It has been associated with a cough and yellow sputum production. Temperature was not taken. Hemoptysis: No. Nasal Congestion: some. Shortness of Breath: yes. Wheezing: yes. Constitutional Symptoms: none. Systemic Complaints: none. Environmental Exposure: none. #3. Subclinical hypothyroidism clinically stable currently on no medication. Does need to be checked see what her current laboratory levels are.: #4. Recent episode of COVID. Has some residual cough and congestion. On physical examination does have some decreased breath sounds as well as expiratory wheezing and rhonchi in the left lower lung field. May have a resolving pneumonia. Will cover with a Z-Simon and some benzoate Perles for the cough.: #5. Hx of obesity. Currently Class 1 Obesity BMI 30-34.99. Has tried numerous dietary support and supplements with no benefit. Instructed on the health consequences of the obese status particularly cancer - diabetes and heart disease. Discussed new modalities of weight loss including GLP-1 medications that are used to treat diabetes. Potential candidate for bariatric surgery: No. Wishes to be evaluated by Dietary: No and was offered to be evaluated and instructed by claim agent on weight loss diet.Medication List Reviewed and Reconciled 08/10/2023Vitamin B12 500 MCG Once DailyAtivan 1 MG (TABLET - ORAL) One Daily For AnxietyLipitor 20 MG (TABLET - ORAL) Once DailyZoloft 100 MG (TABLET - ORAL) One DailyTrazodone 50 MG (TABLET - ORAL) One At BedtimeFish Oil Caps DailyPreservision Vitamins Areds 2 DailyVitamin D DailyVaccination and Hihezpgtkndm9383-91 Fskxurnyu1212-52 Covid Booster Ezsvzh5883-16 Covid Xcrnza6940-52 Lsfplpyzk9004-45 Prevnar 13 GcSurgical HistoryArthroscopy Lt. Knee, Right GENIA, Left THAPreventative Testing Confirmed by Our Dkrqilv2602/21/2023 MAMMOGRAM / ALBUMIN 4.6 G/DL N011/03/2020 DEXA SCAN01/28/2020 UPPER DPPMVCQTE22/30/2019 HAIC 6.0 % OF TOTAL HGB H003/04/2013 COLONOSCOPY (10 YEARS) 03/04/2023Social HistoryDoes not smoke or drink.Family HistoryMother 89 y/o hx of high cholesterolFather 90 y/o hx of DM and CholesterolTwo sisters and one brother all living and in good health Klaudia Shea MD [address], [facility] [address], [place], [address], [facility] 08/10/2023 15:17:08 4 text/html Patient Name: Meka Richardsonte Of Service: Sunday ( 2023 ): 1950 Age: 72 Vital Signs:Blood Pressure: Sitting Rt. Arm 138/80Pulse: Sitting 66 /min and RegularRespiratory Rate: 12Height 66 in or 1.7 mWeight 202.5 lb or 91.9 kgBMI 32.7Temperature: 97 F or 36.1 CPulse Oximetry: 95 % at rest on no oxygen Chief Complaint: Addressed in HPI Problems or conditions discussed in the HPI were the only ones reviewed during the encounter.Only social and family history addressed in the HPI were reviewed during this encounter. Attendant(s): NoneConstitutional and Systemic Symptoms:none Medication Reconciliation: from medication list. Dptzohlfexo18/21/2023: Normal mammogram no evidence of any malignancy. History of Present Illness #1. Several week history of some intermittent expiratory wheezing predominantly confined more the upper airway. Occasionally has some discomfort on oral inspection of the oropharynx do not see any abnormalities but does have a very narrow oropharynx with a Mallampati three. No associated nausea, vomiting, shortness of breath or any other cardiopulmonary symptomatology. No adenopathy is noted. Nose generalized wheezing is noted physical exam.: Active Medication ListVitamin B12 500 MCG Once DailyAtivan 1 MG (TABLET - ORAL) One Daily For AnxietyLipitor 20 MG (TABLET - ORAL) Once DailyZoloft 100 MG (TABLET - ORAL) One DailyTrazodone 50 MG (TABLET - ORAL) One At BedtimeFish Oil Caps DailyPreservision Vitamins Areds 2 DailyVitamin D Daily Vaccination and Aemfvfcbownj5806-62 Covid Booster Wurlruz0805-82 Jpqmkayoz2213-50 Covid Booster Wjurbi0860-40 Covid Bqgfdl0787-64 Srgggnrzb5462-58 Prevnar 13 Gc Surgical Tpclavh5356-63 Arthroscopy Lt. Ycpx2673-09 Right JUH9718-84 Left GENIA Preventative Aagomox4608/14/2023 ALBUMIN 4.4 G/DL N110/15/2022 HAIC 6.1 % OF TOTAL HGB H002/21/2023 MAMMOGRAM 403/11/2020 DEXA SCAN01/28/2020 UPPER MYOSUMRSW08/02/2013 COLONOSCOPY (10 YEARS) 03/04/2023 Social HistoryDoes not smoke or drink. Family HistoryMother 89 y/o hx of high cholesterolFather 90 y/o hx of DM and CholesterolTwo sisters and one brother all living and in good health Klaudia Shea MD [address], [facility] [address], [place], [address], [place] [facility] 2023 17:16:07 4 text/html Patient Name: Meka TobarDate Of Service: February ( 02.07.2024 ): 1950 Age: 73 Vital Signs:Blood Pressure: Sitting Rt. Arm 128/80Pulse: Sitting 85 /min and RegularRespiratory Rate: 12Height 66 in or 1.7 mWeight 203 lb or 92.1 kgBMI 32.8Temperature: 97.9 F or 36.6 CPulse Oximetry: 97 % at rest on no oxygen Chief Complaint: Addressed in HPI Problems or conditions discussed in the HPI were the only ones reviewed during the encounter.Only social and family history addressed in the HPI were reviewed during this encounter. Attendant(s): NoneConstitutional and Systemic Symptoms:none Medication Reconciliation: from medication list. Ynnktcabctn37/21/2023: Normal mammogram no evidence of any malignancy. 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 History of Present Illness #1. Type II Hypercholesterolaemia: Currently taking medication and tolerating well. No interval complaints of any muscle pain or arthralgia. No significant liver changes with medications. Last lipid panel: fair control. Therapy reviewed regarding treatment of cholesterol management and include diet and Lipitor. #2. Hx of hypothyroidism currently stable. Heat intolerance: no Fatigue: no Weight gain: no Difficulty concentrating: no Muscle Symptoms: none Skin Texture: normal Skin Color: normal Currently taking no medication. #3. Hx of depression currently stable. Pharmacological treatment : Ativan and Zoloft . Suicidal thoughts or ideas: None Loss of appetite: No Sleep Disturbance: No Hallucinations: No Is currently seeing no one. Discussed possibility of decreasing and weaning off medication. Feels that current regimen is working fine and wishes not to change the current treatment regimen. No contraindication to continue current therapy. #4. History of resolving shingles so the back with some radiation around the anterior chest wall. Has a very small area of actual rash. Did have some right lower quadrant abdominal pain and some right upper quadrant abdominal pain likely secondary some radiculitis. Clinically is doing well at this time. Is finishing up steroids as well as gabapentin.: #5. Hx of obesity. Currently Class 1 Obesity BMI 30-34.99. Has tried numerous dietary support and supplements with no benefit. Instructed on the health consequences of the obese status particularly cancer - diabetes and heart disease. Discussed other modalities of weight loss no. Potential candidate for bariatric surgery: No. Wishes to be evaluated by Dietary: No and was offered to be evaluated and instructed by claim agent on weight loss diet. Active Medication ListVitamin B12 500 MCG Once DailyAtivan 1 MG (TABLET - ORAL) One Daily For AnxietyLipitor 20 MG (TABLET - ORAL) Once DailyZoloft 100 MG (TABLET - ORAL) One DailyFish Oil Caps DailyPreservision Vitamins Areds 2 DailyVitamin D Daily Vaccination and Abmjtetnfdto1890-46 Covid Booster Guwsyys0893-64 Gpiwthffq4043-04 Covid Booster Xvtldt4307-10 Covid Agbqma1306-54 Wighgtskv2474-87 Prevnar 13 Gc Surgical Ryeazsq7219-45 Arthroscopy Lt. Stjl4779-10 Right TDX3057-10 Left GENIA Preventative Bywnygg7308/14/2023 ALBUMIN 4.4 G/DL N110/15/2022 HAIC 6.1 % OF TOTAL HGB H002/21/2023 MAMMOGRAM 403/11/2020 DEXA SCAN01/28/2020 UPPER QJNPGGEEC93/02/2013 COLONOSCOPY (10 YEARS) 03/04/2023 Social HistoryDoes not smoke or drink. Family HistoryMother 89 y/o hx of high cholesterolFather 90 y/o hx of DM and CholesterolTwo sisters and one brother all living and in good health Klaudia Shea MD [address], [address], [place], [address], [place] [facility] 02/07/2024 17:13:03 4 text/html Patient Name: Meka Richardsonte Of Service: August ( 08.14.2024 ): 1950 Age: 73 There has been approximately a 5 lb weight loss since 02/07/2024. This represents approximately a 2.5% change in weight. Weight change attributable to lifestyle changes. Vital Signs:Blood Pressure: Sitting Rt. Arm 120/82Pulse: Sitting 76 /min and RegularRespiratory Rate: 16Height 66 in or 1.7 mWeight 198 lb or 89.8 kgBMI 32.0Temperature: 97 F or 36.1 CPulse Oximetry: 95 % at rest on no oxygen Chief Complaint: Addressed in HPI Problems or conditions discussed in the HPI were the only ones reviewed during the encounter.Only social and family history addressed in the HPI were reviewed during this encounter. Attendant(s): NoneConstitutional and Systemic Symptoms:none Medication Reconciliation: from medication list. Svtrrehhywv00/21/2023: Normal mammogram no evidence of any malignancy. 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 History of Present Illness #1. Hx of esophageal reflux currently stable. Hx of Complications: none The severity, duration and intensity of symptoms have improved. Frequency: infrequent Treatment consists medications taken on a regular basis. Current therapy includes Stopping the omeprazole that she was given from the upper endoscopy and place on some Reglan 10 mg t.i.d. A.c. To see if there is any improvement in the swallowing mechanism.. There has been no nausea. No change in he frequency or intensity of symptoms. Has had no melena. Has had no . Discussed use of H2 antagonists NA. #2. Type II Hypercholesterolaemia: Currently taking medication and tolerating well. No interval complaints of any muscle pain or arthralgia. No significant liver changes with medications. Last lipid panel: fair control. Therapy reviewed regarding treatment of cholesterol management and include diet and Lipitor. #3. Type II Diabetes: Has had no polyuria polyphagia or polydipsia. Has had no hypoglycemic like responses. No new history of any numbness, tingling, weakness or visual problems. No nausea, anorexia or other constitutional symptoms. There has been no foot problems or non healing lesions. The last HAIC was DCCT HAIC: 6.8 Calculated MB mg%. CGM: No. Average blood sugars unknown. Checking sugars : several times a week. Medication Types Include: Metformin Secondary complications include none. Macro-vascular complications include none. Therapy reviewed regarding diabetic management and include Metformin Compliance: excellent Renal Protection: not required at this stage Lipid management: statins Urinary microalbumin: A1 . Ophthalmological: has seen eye doctor within the last year. Control: Good Control 6.2 - 7.0 #4. Hx of obesity. Currently Class 1 Obesity BMI 30-34.99. Has tried numerous dietary support and supplements with no benefit. Instructed on the health consequences of the obese status particularly cancer - diabetes and heart disease. Discussed other modalities of weight loss no . Potential candidate for bariatric surgery: No. Wishes to be evaluated by Dietary: No and was offered to be evaluated and instructed by claim agent on weight loss diet. Active Medication ListVitamin B12 500 MCG Once DailyAtivan 1 MG (TABLET - ORAL) One Daily For AnxietyLipitor 20 MG (TABLET - ORAL) Once DailyZoloft 100 MG (TABLET - ORAL) One DailyMetformin 500 MG TABLET One BidFish Oil Caps DailyPreservision Vitamins Areds 2 DailyVitamin D DailyMetoclopramide 10 MG TABLET One Tid Ac Vaccination and Immunization( ) 2023- INFLUENZA( ) 2017- PREVNAR 13 GC( ) 2019- PNEUMOVAX( ) 2020- COVID PFIZER( ) 2020- COVID BOOSTER PFIZER( ) 2023- COVID BOOSTER MODERNA Surgical Atiuaod1203-12 Arthroscopy Lt. Bttm6875-73 Right IGJ0411-97 Left GENIA Preventative Testing( ) 07/16/2024 Upper Endoscopy 07/16/2056( ) 02/25/2024 HAIC 6.8 % OF TOTAL HGB H( ) 02/15/2024 Albumin 4.4 G/DL N( ) 02/21/2023 Mammogram 02/21/2025(X) 11/03/2020 DEXA Scan 11/03/2022(X) 03/04/2013 Colonoscopy (10 Years) 03/04/2023 Social HistoryDoes not smoke or drink. Family HistoryMother 89 y/o hx of high cholesterolFather 90 y/o hx of DM and CholesterolTwo sisters and one brother all living and in good health TEST RESULT RANGE UNITSHEMOGLOBIN A1C Date: 02/25/2024HEMOGLOBIN A1C 6.8 <5.7 % OF TOTAL HGBCBC (INCLUDES DIFF/PLT) Date: 02/15/2024WHITE BLOOD CELL COUNT 5.0 3.8-10.8 THOUSAND/ULHEMOGLOBIN 13.4 11.7-15.5 G/DLHEMATOCRIT 40.4 35.0-45.0 %PLATELET COUNT 192 140-400 THOUSAND/ULCOMPREHENSIVE METABOLIC PANEL Date: 02/15/2024SODIUM 140 135-146 MMOL/LPOTASSIUM 4.5 3.5-5.3 MMOL/LGLUCOSE 136 65-99 MG/DLUREA NITROGEN (BUN) 14 7-25 MG/DLCREATININE 0.72 0.60-1.00 MG/DLEGFR 89 > OR = 60 ML/MIN/1.37K7PDHYNSPMY, TOTAL 0.8 0.2-1.2 MG/DLALKALINE PHOSPHATASE 50 37-153 U/LAST 14 10-35 U/LALT 21 6-29 U/LLIPID PANEL, STANDARD Date: 4CHOLESTEROL, TOTAL 149 <200 MG/DLHDL CHOLESTEROL 63 > OR = 50 MG/DLTRIGLYCERIDES 122 <150 MG/DLLDL-CHOLESTEROL 66 MG/DL (CALC)T4, FREE Date: 02/15/2024T4, FREE 0.9 0.8-1.8 NG/DLTSH Date: 02/15/2024TSH 2.70 0.40-4.50 MIU/L Klaudia Shea MD [address], [facility] [address], [place], [address], [facility] 08/14/2024 15:04:05 5 text/html Patient Name: Meka Oswald EkaterinaDate Of Service: February ( 02.19.2025 ): 1950 Age: 74 There has been approximately a 3 lb weight loss since 08/14/2024. This represents approximately a 1.5% change in weight. Weight change attributable to lifestyle changes. Vital Signs:Blood Pressure: Sitting Rt. Arm 120/64Pulse: Sitting 103 /min and RegularRespiratory Rate: 16Height 66 in or 1.7 mWeight 195 lb or 88.5 kgBMI 31.5Temperature: 97 F or 36.1 CPulse Oximetry: 97 % at rest on no oxygen Chief Complaint: Addressed in HPI Problems or conditions discussed in the HPI were the only ones reviewed during the encounter.Only social and family history addressed in the HPI were reviewed during this encounter. A significant, separate E/M service was performed to evaluate the current and new problems. Attendants(s) + NoneConstitutional and Systemic Symptoms:none Medication Reconciliation: from medication list. Jhlvgitxyyc33/21/2023: Normal mammogram no evidence of any malignancy. 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 History of Present Illness Reviewed the findings of the preventative health visit. Addressed all areas with the patient, patient's family or caregivers. Preventative examinations and testing immunizations - vaccinations, colonic neoplasm screening and mammograms all reviewed and ordered where patient was amenable to the recommendations. Cognitive function see HPI but demonstrated no overall change in cognitive status . Depression addressed and where necessary medications were adjusted or instituted. End of life and living will briefly discussed with patient and where these can be filled out and legally executed. Other blood and imaging studies were ordered if considered necessary. Other recommendations may be found in the encounter note. #1. Type II Hypercholesterolaemia: Currently taking medication and tolerating well. No interval complaints of any muscle pain or arthralgia. No significant liver changes with medications. Last lipid panel: fair control. Therapy reviewed regarding treatment of cholesterol management and include diet and Lipitor. #2. Hx of esophageal reflux currently stable. Hx of Complications: none The severity, duration and intensity of symptoms have improved. Frequency: most meals Treatment consists medications taken on intermittent basis. Current therapy includes Metoclopramide. There has been no nausea. No change in he frequency or intensity of symptoms. Has had no melena. Has had no . Discussed use of H2 antagonists NA. #3. Hx of depression currently stable. Pharmacological treatment : Zoloft . Suicidal thoughts or ideas: None Loss of appetite: No Sleep Disturbance: No Hallucinations: No Is currently seeing no one. Discussed possibility of decreasing and weaning off medication. Feels that current regimen is working fine and wishes not to change the current treatment regimen. No contraindication to continue current therapy.#4. Type 2 diabetes. Most recent hemoglobin A1c 6.2. On metformin doing well. No interval complaints of any hypoglycemic attacks etc.. #5. Hx of obesity. Currently Class 1 Obesity BMI 30-34.99. Has tried numerous dietary support and supplements with no benefit. Instructed on the health consequences of the obese status particularly cancer - diabetes and heart disease. Discussed other modalities of weight loss no . Potential candidate for bariatric surgery: No. Wishes to be evaluated by Dietary: No and was offered to be evaluated and instructed by claim agent on weight loss diet. Wellness Evaluation PHQ-2 Score Last Two Weeks Last Two Weeks: 0: Not at all 1: Several Days 2: More than half 3: Almost Every day #1. Little interest or pleasure in doing things: Not At All :Score 0#2. Feeling down, depressed, or hopeless: Not At All :Score 0Score 0FAST Stage: 1 No functional decline Basic ADLS Ambulation Normal YesEating YesBed Transfer YesWalker NoCane NoFalls NoMultiple Falls NoBathing and Showering YesDressing YesFeeding YesFunctional Mobility YesPersonal Hygiene YesToilet Hygiene YesHome Safety Yes Instrumental ADLS House Work YesTaking Medications YesShopping YesTelephone YesUsing Technology YesTransportation YesPreparing Meals Yes Additional Topics Advanced Directives DeclinedLiving Will Declined Mini Mental Status Exam OrientationYear 1Season 1Month 1Date 1Day 1Score: 5 LocationCountry 1County 1City 1Facility 1Room 1Score: 5 RegistrationHouse 1Car 1Airplane 1Score: 3 AttentionD 1L 1R 1O 1W 1Score: 5 RecallHouse 1Car 1Airplane 1Score: 3 LanguageWatch 1Pencil 1Score: 2 RepetitionNo ifs, ands or buts 1Score: 1 SentenceWrite a Sentence 1Score: 1 ReadingClose Eyes 1Score: 1 PentagonsCopy Design 0Score: 0 CommandHand 1Fold In Half 1Put Down 1Score: 3 Total Test Score: 29 /30 Normal Possible Functional ImpairmentActivities of Daily Living: Probably NormalCommunication: Probably NormalMemory: Probably Normal Social and Physical Activities Drinking History: NoneExercise 20 Minutes per Week: No, do not exercise muchDifficulty Driving Car: NoOther Problems: None,Falling,Orthostatic, Trouble Eating,Teeth Denture Problems,Problems using Telephone,Tiredness or fatigue Smoking History Does not smokeCannabis History Does Not Use End Of Wellness Section Active Medication ListVitamin B12 500 MCG Once DailyAtivan 1 MG (TABLET - ORAL) One Daily For AnxietyLipitor 20 MG (TABLET - ORAL) Once DailyZoloft 100 MG (TABLET - ORAL) One DailyMetformin 500 MG TABLET One BidFish Oil Caps DailyPreservision Vitamins Areds 2 DailyVitamin D DailyMetoclopramide 10 MG TABLET One Tid Ac Adverse Drug Reactions ReviewedNo Known Adverse Drug Reactions! Vaccination and Immunization ( ) 2024-08 INFLUENZA( ) 2018-08 PREVNAR 13 GC(X) 2020-01 PNEUMOVAX PREVNAR 20 Needed( ) 2020-12 COVID PFIZER( ) 2021-08 COVID BOOSTER PFIZER(X) 2023-10 COVID BOOSTER MODERNAImmunizations and Vaccinations Discussed and Implemented if feasible In the Office. Else referred to pharmacies. Surgical History 2023-04 Arthroscopy Lt. Owcb5094-69 Right VPF3862-80 Left GENIA Preventative Testing ( ) 09/30/2024 Cologuard 09/30/2027( ) 08/19/2024 HAIC 6.2 % OF TOTAL HGB H( ) 07/16/2024 Upper Endoscopy 07/16/2057( ) 02/15/2024 Albumin 4.4 G/DL N( ) 02/21/2023 Mammogram 02/21/2025(X) 11/03/2020 DEXA Scan 11/03/2022reventative Testing Discussed and Scheduled if Acceptable to Patient Social HistoryDoes not smoke or drink. Family HistoryMother 94 y/o hx of high cholesterolFather 96 y/o hx of DM and CholesterolTwo sisters and one brother all living and in good health Klaudia Shea MD [address], [facility] [address], [place], [address], [facility] 02/19/2025 15:11:54 OBGyn Episode No OBEpisode recorded.
--- OUTSIDE RECORDS SUMMARY | 2025-08-23 14:25 | XMS_ITS | Data Portability ---
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 dexa ordered and encouraged Encouraged weight bearing exercise and 1500mg daily of Calcium with Vitamin D FU 1 year or prn [email or web address] Not available 09/06/2020 16:05:45 11/07/2021 11/07/2021 healthy female exam/menopause pap-l ast one at 72 mammogram ordered and encouraged colonoscopy due in 2025 dexa due 2025 Encouraged weight bearing exercise and 1500mg daily of Calcium with Vitamin D FU 1 year or prn [email or web address] Not available 11/07/2021 18:52:53 12/13/2022 12/13/2022 healthy female exam/menopause patient declines std testing pap done- if normal can be last mammogram due this month- ordered colonoscopy due 2025 dexa due 2025 Encouraged weight bearing exercise and 1500mg daily of Calcium with Vitamin D azymptomatic atrophy fluid restriction prior to bedtime FU 1 year or prn [email or web address] Not available 12/15/2022 09:19:21 03/04/2025 03/04/2025 Annual gynecological exam performed. Patient will come back in a year unless there are new symptoms. [email or web address] Not available 03/04/2025 14:09:06 Plan of Treatment Reminders Order Date Submit Date Provider Last Modified By Organization Details Last Modified Time Details Appointments None recorded. Lab pap, LB 2020 021 [facility] ([facility]), [address], [place], [address], 1 22:05:53 HPV DNA, high-risk 2020 021 [facility] ([facility]), [address], [place], [address], 1 16:54:17 Referral None recorded. Procedures None recorded. Surgeries None recorded. Imaging MAMMO, screening, digital, bilateral [address], [address], [place], [address], 5 12:16:56 DEXA, axial skeleton + vertebral fracture assessment [address], [address], [address], [place], [address], 5 12:17:07 Medication Orders estradiol 0.01% (0.1 mg/gram) vaginal cream 2024 025 [id number], [address] [facility], [place], [place], [id number], 5 14:33:17 Patient TargetsNo targets recorded. Patient InstructionsNo instructions recorded. Reason for Referral None Reported. Results Created Date Observation Date Name Description Value Unit Range Abnormal Flag Note LastModifiedBy Organization Detail LastModifiedTime 09/06/19 21 09/07/2020 pap, LB Pap test thin prep Negati ve for Intrae pithel ial Lesion or Malign karo normal ACCES YANCI #: [id number] Sourc e: Cervi joselin/E ndoce rvica l LMP: 2019 Date Taken : 09/06 Speci men Type: ThinP rep Vial Date Repor isaak: 021 Clini joselin Data: Cytot ech: Celeste tal Osuna Young , CT( CP) Date Repor isaak: 021 Speci men Adequ acy: Satis facto ry for evalu ation Endoc ervic al/tr ansfo rmati on zone compo nent prese nt Gener al Categ oriza tion: NEGAT SUKH FOR INTRA EPITH ELIAL LESIO N OR MALIG TETE Comme nts/R ecomm endat ions: Infla mmati on This speci men has been omi zed by the ThinP rep Imagi ng Syste m, an inter activ e compu ter syste m which sommer ts the lab in the scree gabriela of ThinP rep Pap Test slide s. Follo wing imagi ng, the slide was revie wed by a Cytot echno logis t and/o r Patho logis t. End of t Techn ical servi bharti provi ded by [facility], d/[facility]/a [facility], [address] [place] [address] Mauricio Baron MD, Labor atorThreatStream Dire tor. Case revie wed and diagn osis rende red at [facility] log[facility], d/b/a [facility], [address] [place] [address] Mauricio Baron MD, Labor ator Dire tor. CONFI DENTI AL Not Available [facility] ([facility]) [address], [place], [address], 09/07/2020 22:05:53 12/14/19 23 12/13/2022 IMAGE GUIDE D PAP AND HPV REGAR DLESS image guided Pap, HPV regardless of Pap result SEE RESULT S BELOW CASE REPOR T: Cytol ogy Gynec ologi joselin Repor t Case: [id number] Autho coretta g Provi ki: Denia Bryson MD Colle cted: 12/13 1620 Order ing Locat ion: [place] [facility] Recei lalo: 12/14 0624 First Scree n: Melia garces, Willi am, CT Speci men: Scree gabriela Pap - Image d, Cervi x STATE MENT OF ADEQU ACY: Satis facto ry for evalu ation Trans forma tion zone compo nent prese nt FINAL DIAGN OSIS: Negat sukh for Intra epith elial Lesquiana rowe or Hamilton tomlinson (NIL) . Elect kyra virgen gray d by Melia garces, Robin ramirez, CT on 2022 at 6:09 AM ----- ----- ----- ----- ----- ----- ----- ----- ----- ----- ----- ----- ----- ----- ----- ----- ----- ---- HPV RESUL TS: HPV mRNA E6/E7 : No HPV mRNA Detec isaak NOTE: This high risk HPV mRNA assay detec ts fourt een high- risk HPV types (16, 18, 31, 33, 35, 39, 45, 51, 52, 56, 58, 59, 66, 68) witho ut diffe renti ation . COMME NT: This speci men was revie wed by a Cytot echno logis t and/o r Patho logis t (as indic ated in this repor t) after evalu ation using the Thinp rep Imagi ng Syste m. CLINI JOSELIN INFOR MATIO N: Menst rual Statu s: LMP (if appli cable ): Clini joselin Histo ry/Pr eviou s Pap: Type of Neopl caridad (if appli cable ): Signi fican t Clini joselin Findi ngs: Other Histo ry: Hormo eliud (if appli cable ): PAP EDUCA ARLENE L NOTE: The Pap Test is a scree gabriela test with an inher ent false negat sukh rate. Liqui d-bas ed sampl ing may decre ase, but will not elimi devi, false negat sukh resul ts. A negat sukh resul t does not precl ude the prese nce and/o r devel opmen t of disea se, since the prese nce of abnor mal cells in the sampl e depen ds on the locat ion of the lesio n and sampl ing techn ique. Brian nued regul ar scree gabriela is the best metho d of cance r preve ntion . If repor isaak cytol ogic findi ng do not corre late with physi joselin and/o r histo rical findi ngs, furth er inves tigat ion is recom florentino d, as clini chinedu warra nted. Not Available [facility] (Lab) [address], [place], [address], 12/16/2022 07:12:43 11/05/19 21 11/03/2020 MAMMO , scree gabriela, bilat eral No observ ation record ed. [facility] [address], [place], [address], 11/05/2020 13:11:10 11/17/19 21 DEXA, axial skele ton + verte bral fract ure asses sment No observ ation record ed. layran Not Available 2020 16:48:11 12/20/19 22 12/19/2021 MAMMO , scree gabriela, bilat eral No observ ation record ed. [facility] [address], [place], [address], 12/20/2021 15:09:03 12/20/19 22 12/19/2021 MAMMO , scree gabriela, bilat eral No observ ation record ed. [email or web address] [facility] [address], [place], [address], 03/01/2023 16:29:30 02/22/20 23 02/21/2023 MAMMO , scree gabriela, bilat eral No observ ation record ed. [email or web address] [facility] [address], [place], [address], 02/21/2023 13:08:34 05/22/20 24 05/22/2024 MAMMO , scree gabriela, digit al, bilat eral No observ ation record ed. JEAN [facility] [address], [place], [address], 06/06/2024 04:05:31 Result Notes None recorded. Problems Name Problem SNOMED Code Status Onset Date Resolution Date Notes Provider Name and Address Organization Details Recorded Time Microsco pic hematuri a 562443161 Completed 201309/06/2020 HEMATURI A MICROSCO PIC;Prac neo ID: 0001 Denia Otto MD [address], [place], [address], [facility] 14:03:27 Speciali zed medical examinat ion Completed 201409/06/2020 Routine gynecolo gical examinat ion;Prac neo ID: 0001 Denia Otto MD [address], [place], [address], [facility] 14:03:47 Screenin g for malignan t neoplasm of cervix Completed 201409/06/2020 Pap Smear;Pr actice ID: 0001 Denia Otto MD [address], [place], [address], [facility] 14:03:30 Screenin g for malignan t neoplasm of rectum Completed 201409/06/2020 Screenin g for malignan t neoplasm s of the rectum;P ractice ID: 0001 Denia Otto MD [address], [place], [address], [facility] 14:03:32 Adult health examinat ion Completed 201409/06/2020 ROUTINE MEDICAL EXAM;Rec orded Elsewher e: No Locat ion: [facility] S ource: EHR Water Engineer meme: N Practi ce ID: [id number] Gio lable Time: 11:15:00 AM MD [address] [place], [address], [facility] 1 14:03:[address] Concept Completed 201509/06/2020 Encntr for general adult medical exam w/o abnormal findings ;Practic e ID: [address], [place], [address], [facility] 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 1 14:03:45 Blood leukocyt e number above referenc e range [id number] Completed 201609/06/2020 Elevated white blood cell count, unspecif ied;Prac neo ID: [address], [place], [address], [facility] 1 14:03:24 Urinary tract infectio us disease 29860976 Active 2016 Urinary tract infectio n, site not specifie d;Practi ce ID: 0001 Not Available [facility] 17:22:24 Disorder of breast 51511023 Completed 201709/06/2020 Disorder of breast, unspecif ied;Mane rded Elsewher e: No Locat ion: [facility] S ource: EHR Water Engineer meme: N Practi ce ID: 0001 Gio lable Time: 02:00:00 PM MD [address], [place], [address], [facility] 14:03:21 Problem Notes None recorded. Procedures Surgical History Date Name Laterality Status Provider Name and Address Organization Details Recorded Time 09/03/19 24 excision of cyst completed Linh Beranrdo [facility] 03/04/2025 14:16:30 12/20/19 22 Date of Last Mammogram completed [facility] 12/13/2022 09:40:07 09/06/19 21 Date of Last Pap Smear completed [facility] 11/07/2021 17:44:21 09/03/19 21 Most Recent Bone Density completed [facility] 11/07/2021 17:44:57 09/03/19 16 Date of Last Colonoscopy completed [facility] 11/07/2021 17:44:34 09/03/19 11 hysteroscopy completed [facility] 09/06/2020 09:01:16 09/03/19 05 colonoscopy completed [facility] 09/06/2020 09:01:28 total replacement of hip completed [facility] 09/06/2020 09:02:09 total replacement of hip completed [facility] 09/06/2020 09:02:22 Imaging Results None recorded. Procedure Notes None recorded. Medical Equipment None Reported. Allergies No known drug allergies Medications Name Sig Start Date Stop Date Status Note LastModified by Organization Details LastModified Time metformin 500 mg tablet TAKE 1 TABLET BY MOUTH TWICE DAILY active Not Available Not Available No t Available atorvasta tin 20 mg tablet TAKE 1 TABLET BY MOUTH DAILY active Not Available Not Available No t Available trazodone 50 mg tablet TAKE 1 TABLET BY MOUTH EVERY DAY AT BEDTIME NEEDED 03/04 completed Not Available Not Available Not Available azithromy deepti 250 mg tablet 12/13 completed Not Available Not Available Not Available sertralin e 100 mg tablet TAKE 1 TABLET BY MOUTH DAILY active Not Available Not Available No t Available Zoloft 20 mg/mL oral concentra te take 2.5 millilit er by oral route every day and mix with 4 oz. (1/2 cup) of water, ira ritchie, lemon/li me soda, lemonade or orange juice ONLY 09/06 completed Prescrib ed Elsewher e: Yes Loca tion: [facility] odify By: priya gonzalez DateTime : 12/26/19 12 11:46:59 AM Not Available Not Available Not Available omeprazol e 40 mg capsule,d elayed release TAKE 1 CAPSULE BY MOUTH DAILY active Not Available Not Available No t Available Macrobid 100 mg capsule take 1 capsule by oral route every 12 hours with food 10/04 completed Prescrib ed Elsewher e: No Locat ion: [facility] odify By: lakia gonzalez DateTime : 10/04/19 17 04:00:00 PM Not Available Not Available Not Available prednisol one acetate 1 % eye drops,iron pension 12/13 completed Not Available Not Available Not Available meclizine 25 mg tablet TAKE 1 TABLET BY MOUTH THREE TIMES DAILY 03/04 completed Not Available Not Available Not Available cephalexi n 500 mg capsule TK FOUR CS PO 1 HOUR B DAPP 03/04 completed Not Available Not Available Not Available Cipro 500 mg tablet take 1 tablet by oral route every 12 hours 01/13 completed Prescrib ed Elsewher e: No Locat ion: [facility] odify By: cmedical Encount er DateTime : 01/08/20 14 10:00:00 AM Not Available Not Available Not Available mometason e 0.1 % topical ointment APPLY DIRECTED TO LEFT ABDOMEN EVERY NIGHT AT BEDTIME 12/13 completed Not Available Not Available Not Available zolpidem 5 mg tablet 09/06 completed Not Available Not Available Not Available ergocalci ferol (vitamin D2) 1,250 mcg (50,000 unit) capsule TAKE 1 CAPSULE BY MOUTH EVERY WEEK active Not Available Not Available No t Available lorazepam 1 mg tablet TAKE 1 TABLET BY MOUTH THREE TIMES DAILY NEEDED FOR ANXIETY active Not Available Not Available No t Available estradiol 0.01% (0.1 mg/gram) vaginal cream apply 1g vaginall y at bedtime every night for 2 weeks, after 2 weeks - apply 1g vaginall y at bedtime twice per week as maintena nce dose active Not Available Not Available No t Available methylpre dnisolone 4 mg tablets in a dose pack TAKE BY MOUTH DIRECTED PER PACKAGE DIRECTIO NS WITH FOOD 12/13 completed Not Available Not Available Not Available Lipitor 10 mg tablet take 1 tablet by oral route every day 11/07 completed Prescrib ed Elsewher e: Yes Loca tion: [facility] odify By: priya gonzalez DateTime : 12/26/19 12 11:46:59 AM Not Available Not Available Not Available metoclopr amide 10 mg tablet TAKE 1 TABLET BY MOUTH THREE TIMES DAILY BEFORE MEALS active Not Available Not Available No t Available Bactrim DS 800 mg-160 mg tablet take 1 tablet by oral route every 12 hours 04/26 completed Prescrib ed Elsewher e: No Locat ion: [facility] odify By: nuha patton DateTime : 01/14/20 14 11:35:03 AM Not Available Not Available Not Available Vitamin C 500 mg capsule,e xtended release 09/06 completed Prescrib ed Elsewher e: Yes [facility] By: priya gonzalez DateTime : 01/08/20 14 10:00:00 AM Not Available Not Available Not Available multivita min active Not Available Not Available Not Available Vitamin D3 10 mcg (400 unit) capsule 09/06 completed Prescrib ed Elsewher e: Yes [facility] By: priya gonzalez DateTime : 01/08/20 14 10:00:00 AM Not Available Not Available Not Available Thera Tears SteriLid active Not Available Not Available Not Available Vitals Date Recorded Body height Body mass index (BMI) Body weight Systolic And Diastolic Provider Name and Address Organization Details Last Updated DateTime 09/06/2020 167.64 cm 33.6 kg/m2 22666.21 g 141/77 mm[Hg] Sarah [facility] 09/06/2020 14:36:49 Date Recorded Body height Body mass index (BMI) Body weight Systolic And Diastolic Provider Name and Address Organization Details Last Updated DateTime 11/07/2021 167.64 cm 32.9 kg/m2 26035.84 g 144/79 mm[Hg] [facility] 11/07/2021 17:44:04 Date Recorded Body height Body mass index (BMI) Body weight Systolic And Diastolic Provider Name and Address Organization Details Last Updated DateTime 12/13/2022 167.64 cm 33.1 kg/m2 53601.44 g 125/55 mm[Hg] [facility] 12/13/2022 16:51:15 Date Recorded Body height Body mass index (BMI) Body weight Systolic And Diastolic Provider Name and Address Organization Details Last Updated DateTime 03/04/2025 167.64 cm 31.5 kg/m2 01711.51 g 139/79 mm[Hg] [facility] 03/04/2025 14:10:04 Social History Question Answer Notes LastModified by [employer] Details LastModified Time Tobacco Smoking Status Never Smoker [facility] 09/06/2020 14:10:49 In The 14 Days Before Symptom Onset, Have You Had Close Contact With A Laboratory-confirm ed COVID-19 While That Case Was Ill? No [email or web address] Information n ot available 03/04/2025 In The 14 Days Before Symptom Onset, Have You Had Close Contact With A Person Who Is Under Investigation For COVID-19 While That Person Was Ill? No Information not available 03/04/2025 Have You Been To An Area Known To Be High Risk For COVID-19? No [email or web address] Information not available 03/04/2025 Has Tobacco Cessation Counseling Been Provided? No Information not available 11/07/2021 Sex: Unknown Functional Status Question Answer Note LastModified by Organizat ion Details LastModified Time Do you use any illicit or recreational drugs? No Information not available 11/07/2021 Do you or have you ever used any other forms of tobacco or nicotine? No Information not available 11/07/2021 What is your level of alcohol consumption? None Information not available 11/07/2021 Mental Status None recorded. Family History Relationship Description Onset Age of this Age Resolved Age Notes LastModified by Organization Details LastModified Time Paternal Grandmother Myocardial infarction [email or web address] Not available 09/06 09:00:28 Notes:Father: Diabetes rex alonso Maternal aunt: Diabetes mellitus Maternal grandmother: Hypertension Paternal grandmother: Stroke Medical History Condition Response Allergies (Food, seasonal, environmental ) N Other N Breast Cancer N Drug/Latex Allergies/Reactions N Blood Transfusion N Dermatologic Disorders N Lung Disease N Defects or Inherited Disease N Breast Problem N Gestational Diabetes N Hematologic disorders N Anesthesia Complications N History of STI N Deep Vein Thrombosis N Polycystic ovary syndrome N Anxiety Disorder Y Autoimmune disease N Arthritis N Infertility N Polyps N Acid Reflux (GERD) N History of abnormal pap N Cancer N Stroke N Varicosities N Neurologic/Epilepsy N Endometriosis N High Cholesterol Y Headaches N Fibromyalgia N Kidney Disease N Heart Problems N Kidney or Bladder Problems N Thyroid Problems N GI Problems N Eating Disorder N Anemia N Art (IVF or FET) N Psychiatric Illness N Ovarian Cancer N Diabetes Y Pulmonary (TB, Asthma) N Hepatitis/Liver Disease N Eczema N Urinary Tract Infection N Abuse/Domestic Violence N Asthma N Trauma/Violence N Depression/ depression N Heart Disease N Pre-Eclampsia N Hypertension N Osteoporosis N Thrombophilias N Gynecological History Statement/Question Response HPV Vaccine N Date of Last Pap Smear 09/06/2020 Current Control Method None Date of Last Mammogram 12/19/2021 Date of Last Colonoscopy 09/03/2015 Most Recent Bone Density 09/03/2020 Obstetrics History GPAL:G 2 P 2 0 0 2 Type Value Full Term 2 Living 2 Total 2 Past Encounters Encounter ID Performer Location Encounter Start Date Encounter Closed Date Diagnosis/Indication Diagnosis SNOMED-CT Code Diagnosis ICD10 Code Diagnosis IMO Codes Diagnosis Note [id number] MD [place] Lechuga [address] [address] 09/06/2020 13:47:54 09/06/2020 17:07:10 Gynecologic examination 51896142 Z01.419 Menopause present 895392 006 N95.1 [id number] Denia Otto MD [facility] [address] [address] 11/07/2021 17:21:08 11/08/2021 11:02:33 Screening for malignant neoplasm of breast 187975126 Z12.39 Family his tory of malignant neoplasm of ovary 226301299 Z80.41 [id number] Denia Otto MD [facility] [address] [address] 12/13/2022 16:32:08 12/15/2022 14:54:03 Urinary incontinence 801034822 R32 Nocturia 134553624 R35.1 Menopause present 454847 006 N95.1 Atrophic vaginitis 53543 000 N95.2 [id number] Gisell ZamoraCRUZ [facility] [address] [address] 03/04/2025 13:40:30 03/04/2025 16:14:30 Gynecologic examination 66477816 Z01.084 5831833 WWEpostmen opausalPap - UTD/not indicated todaySTI screen - declinedMa mmogram - order givenColon cancer screening - UTDDexa - order givenRouti ne labs - UTD/PCPRTC in 1 yr or sooner if needed Do monthly self breast exams.It is advised to get annual flu shot in the fall and she could obtain at local pharmacy. If you haven't received the Tdap vaccine in the last 10 years you should obtain one as well.Have mammogram yearly, bone density every 2-3 years and stay up to date on colon cancer screening. Engage in regular exercise. Avoid tobacco and illicit drugs. This lifestyle behavior pattern will lead to less health conditions and longer life span. If BMI greater than 25 dietary consult advised.Qu estions have been answered. Screening mammography 24 738256 Z12.31 1383720694 Vaginal dryness 02652034 N89.8 585894 Atrophic vulva 801266314 N90.5 3495154 options reviewedrx vaginal estradiol cream, r/b/a reviewedve g based moisturize r routine discussed Time spent in visit is a total of 30 mins with at least 50% of visit consisting of counseling and review of plan of care. Screening for osteoporosis 746651949 Z13.820 Z78.0 [id number] Health Concerns Section Related Observation LastModified by Organization Detai ls LastModified Time None Recorded Concern Status LastModified by Organization Details LastModified Time None Recorded Advance Directives Directive None Recorded Payers Insurance Date Sequence Insurance Name Policy Number Policy Bustamante Covered Member ID Bustamante Member ID Guarantor Name 03/12/2025 2 [employer] (MEDICARE SUPPLEMENT) Meka Tobar [id number] Meka Tobar 03/04/2025 1 [place] Meka Tobar [id number] Meka Tobar Notes Date Note Type Note Provider Name and Address Organization Details Recorded Time 1 text/html Patient is a 69yo who presents for an annual exam. NO concerns. Menopause 2002. no bleeding since. last pap-05/2019 NILM HPV not done mammo-08/2019 colonoscopy-uncertain, maybe 2015 dexa-few years ago menopause-2002 sexually active-no, a few months ago seatbelts-yes exercise-minimal depression-denies domestic violence-denies tobacco-no concerns-none Denia Otto MD [address], [place], [address], [facility] 09/06/2020 16:06:06 2 text/html Patient is a 70yo who presents for an annual exam. NO concerns. Menopause 2002. no bleeding since.last pap-09/23 NILM HPV not donemammo- olonoscopy-2015, 10 yearsdexa-normal 2020menopause-2002sexuall y active-no, last yearseatbelts-yesexercise -minimaldepression-denies domestic lrdvhqys-awpnhuvgrpoyf-ss concerns-none Denia Otto MD [address], [place], [address], [facility] 11/07/2021 18:54:14 3 text/html Patient is a 72yo who presents for an annual exam. She is doing well, only concern is leaking more at night when gets up to go to the bathroom, restricting fluids in the evening helps. No bleeding since menopause. last pap-2020 mammo-12/2021 colonoscopy-2016, 10 years dexa-2020 normal menopause-2002 sexually active-no seatbelts-y exercise-y depression-denies domestic violence-denies tobacco-n concerns-n Denia Otto MD [address], [place], [address], [facility] 12/15/2022 09:19:33 5 text/html Annual Market Research Executive Post-MenopausalReported by PatientGenitourinary symptomsFor menopausal symptoms, patient reportsno menopausal symptomsandnormal vaginal lubrication. For vaginal bleeding, patient reportshistory of menopause having occurredandno history of post menopausal bleeding. For urinary symptoms, patient reportsno hematuria,no incontinence,no nocturia, andno urinary frequency. For vulva, patient reportsno genital lesionandno vulvar atrophy. For vagina, patient reportsnormal vaginal dischargeandno vaginal atrophy.Breast symptomsFor breast, patient reportsno breast lump,no nipple discharge, andno breast pain.Psychological symptomsFor sexual complaints, patient reportsno sexual complaints. For psychological symptoms, patient reportsno depressionandno anxiety.Preventative measuresFor preventive measures, patient reportsencourage regular mammograms starting age 40,encourage self breast examination,encourage regular exercise, andencourage no tobacco use.74yo wwepostmenopausallast pap 2022 : nilm, HPV (-)mammogram ologuard done 09/2024dexa last 2020 vaginal dryness, stress incontinence at times [facility] [address], [place], [address], [facility] 03/04/2025 15:46:11 OBGyn Episode Ob Episode Information Episode Created Date Number of Fetuses Patient Bloodtype Patient rh Status Prepregnancy Weight lbs Domestic Partner Domestic Partner Phone Father Name [employer] Status 09/06/19 21 1 CLOSED Fetus Data First Name Last Name Admitted to NICU Weight (g) Sex Living Outcome Pediatric Complications Fetus ID Race Codes Race Delivery Type [id number] Vaginal Delivery Dirk Calculation Initial Dirk Date Initial Exam Date Initial Exam Provider Initial Ultrasound Date Last Menstrual Period Date Ultra Sound Weeks Gestation 0 Eighteen To Twenty Week Dirk Update Ultra Sound Date Fundal Height At Umbil Quickening Date Ultra Sound Latest Weeks Gestation Final Dirk Confirmed By Final Dirk Confirmed Date Final Dirk Date Ultra Sound Latest Days Gestation 0 0 Menstrual History Last Menstrual Date Menses Monthly On Bcp Conception Prior Menses Frequency Hcg Plus Date Menarche Onset Age Delivery Information Delivery Date Delivery Type Labor Anesthesia Weeks Gestation Incision Type Labor Labor Length Hrs Delivered By Post Complications Tubal Sterilization Discharge Date Comments 9 Discharge Information Feeding Method Contraceptive Method Maternal HG B and HCT Levels Ob Episode Information Episode Created Date Number of Fetuses Patient Bloodtype Patient rh Status Prepregnancy Weight lbs Domestic Partner Domestic Partner Phone Father Name [employer] Status 09/06/19 21 1 CLOSED Fetus Data First Name Last Name Admitted to NICU Weight (g) Sex Living Outcome Pediatric Complications Fetus ID Race Codes Race Delivery Type [id number] Vaginal Delivery Dirk Calculation Initial Dirk Date Initial Exam Date Initial Exam Provider Initial Ultrasound Date Last Menstrual Period Date Ultra Sound Weeks Gestation 0 Eighteen To Twenty Week Dirk Update Ultra Sound Date Fundal Height At Umbil Quickening Date Ultra Sound Latest Weeks Gestation Final Dirk Confirmed By Final Dirk Confirmed Date Final Dirk Date Ultra Sound Latest Days Gestation 0 0 Menstrual History Last Menstrual Date Menses Monthly On Bcp Conception Prior Menses Frequency Hcg Plus Date Menarche Onset Age Delivery Information Delivery Date Delivery Type Labor Anesthesia Weeks Gestation Incision Type Labor Labor Length Hrs Delivered By Post Complications Tubal Sterilization Discharge Date Comments 7 Discharge Information Feeding Method Contraceptive Method Maternal HG B and HCT Levels
[2025-08-23 14:33] VITALS: BP 170/73; PULSE 75; RESP 18; TEMP 36.6; O2SAT 97
--- NOTE | 2025-08-23 14:51 | ED.URI ---
HPI - URI/Sore Throat General Chief Complaint: Urogenital-Female Stated Complaint: flu/fever patient presents to the [facility] with complaints of sneezing and nasal drainage began and lasted for 1 day then noticed fatigue and headache that has continued for the last 4 days. Patient notes taking Tylenol and ibuprofen. denies sensitivity to light, nausea, vomiting, shortness of breath, dizziness, loss of vision changes in vision. patient does also reports several weeks of bladder pressure and increased urination. Missed her primary care visit a few days ago and has this rescheduled for these complaints. Related Data Home Medications ?Medication ?Instructions ?Recorded ?Confirmed ?Last Taken ?Type atorvastatin 20 mg tablet 20 mg PO DAILY 01/11/20 07/16/24 07/15/24 History lorazepam 1 mg tablet 1 mg PO PRN PRN Anxiety 01/11/20 07/16/24 07/15/24 History sertraline 100 mg tablet 100 mg PO DAILY 01/11/20 07/16/24 07/15/24 History cholecalciferol (vitamin D3) 125 125 mcg PO DAILY 11/22/23 07/16/24 07/15/24 History mcg (5,000 unit) capsule docosahexaenoic acid (dha)-epa 120 1 cap PO DAILY 11/22/23 07/16/24 07/15/24 History mg-180 mg capsule (Fish Oil) multivitamin 1 tablet PO DAILY 11/22/23 07/16/24 07/15/24 History vitamins A,C,G-ojzr-vxwckx 2,148 1 tablet PO ONCE 11/22/23 07/16/24 07/15/24 History mcg-113 mg-45 mg-17.4 mg tablet (PreserVision AREDS) metformin 500 mg tablet 500 mg PO BID 04/18/24 07/16/24 07/15/24 History Allergies Allergy/AdvReac Type Severity Reaction Status Date / Time No Known Allergies Allergy Unknown Verified 08/23/25 14:33 Review of Systems Constitutional: Constitutional: Reports as per HPI, Denies chills, Reports fatigue, Denies fever(s) and Denies weakness Eyes: Eyes: Reports no additional eye complaints ENT: Reports as per HPI, Denies vertigo, Denies dizziness, Reports nasal congestion and Denies sore throat Comments: sneezing and nasal drainage now resolved Respiratory: Respiratory: Reports as per HPI, Denies chest congestion, Denies cough, Denies dyspnea and Denies wheezing Gastrointestinal: Gastrointestinal: Reports as per HPI, Denies abdominal pain, Denies bloating, Denies diarrhea, Denies nausea and Denies vomiting Genitourinary: Genitourinary: Reports as per HPI, Reports nocturia, Reports dysuria, Denies pelvic pain and Denies urinary incontinence Musculoskeletal: Musculoskeletal: Reports as per HPI, Denies back pain and Denies myalgias Integumentary/Breasts: Skin/Breast: Reports as per HPI, Denies erythema, Denies rash and Denies skin ulcer Neurologic: Reports as per HPI, Denies vertigo, Denies dizziness, Reports headache(s), Denies numbness and Denies weakness Psychiatric: Psychiatric: Reports no additional psychiatric complaints Endocrine: Endocrine: Reports no additional endocrine complaints Hematologic/Lymphatic: Hematologic/Lymphatic: Reports no additional hematologic/lymphatic complaints Allergic/Immunologic: Allergic/Immunologic: Reports no additional allergic/immunologic complaints PMFSH Past Medical History Medical History Acute bacterial sinusitis Acute bronchitis Depression Depressive disorder Diabetes Hypercholesterolemia Hyperlipidemia Low back pain Lymphadenitis Osteoarthritis Thyroglossal duct cyst Ventricular premature beats Vitamin D deficiency Surgical History Surgical History History of hip replacement History of total left hip replacement History of total right hip replacement Family History Family History Sibling Cancer Mother Hypertension Hyperlipidemia Social History Social History Smoking status: Never smoker Alcohol intake: never Substance use: never Substance use type: does not use Living arrangements: with family Spiritual care concerns: No Exam Const: General: healthy appearing and no acute distress Nutritional Appearance: well nourished Orientation/consciousness: patient oriented x3 Limitations: no limitations HENMT: Head: normal to inspection Ears: external ears normal and TM's normal bilaterally Face/Nose/Sinus: Normal external nose present and Normal nares present Face and sinus: normal facial exam and sinuses nontender Mouth: Yes Normal oral and palatal mucosa present, Yes lip normal and Yes moist mucous membranes Throat: posterior oropharynx normal Eyes: Conjunctivae: conjunctivae normal Pupils: Equal, round and reactive pupils present EOM: EOMs intact bilaterally Direct Ophthalmoscopy: no photophobia Neck: Neck: normal visual inspection and no lymphadenopathy Resp: Effort & Inspection: normal respiratory effort Auscultation: clear to auscultation bilaterally Cardio: Rate: regular rate Rhythm: regular rhythm GI: Inspection: non-distended GI Palp: Yes Soft to palpation, No Tenderness to palpation present (GI), No Guarding due to palpation present (GI), No Rigid due to palpation, No Hernia present and Yes Rebound tenderness present Auscultation: normal bowel sounds : General: Yes bladder normal to palpation and Yes no CVA tenderness Back/Spine/Pelvis: Back: no CVA tenderness Skin: General skin exam: normal color Rashes: no rashes Wounds: no wounds Neuro: General: patient oriented x3 Speech: normal speech Gait exam (Neuro): Normal gait present Psych: Mental Status: mental status grossly normal Affect: normal affect Attitude: cooperative Course Course Level of Care: Express Care Visit Vital Signs Vital signs: Vital Signs Temperature 97.9 F 08/23/25 14:33 Pulse Rate 75 08/23/25 14:33 Respiratory Rate 18 08/23/25 14:33 Blood Pressure 170/73 H 08/23/25 14:33 Pulse Oximetry 97 08/23/25 14:33 Oxygen Delivery Room Air 08/23/25 14:33 Temperature 97.9 F 08/23/25 14:33 Pulse Rate 75 08/23/25 14:33 Respiratory Rate 18 08/23/25 14:33 Blood Pressure 170/73 H 08/23/25 14:33 Pulse Oximetry 97 08/23/25 14:33 Oxygen Delivery Room Air 08/23/25 14:33 [facility] Narrative Medical decision making narrative: COVID in fluid negative today. No other symptoms noted. No abnormalities noted on exam. The patient was evaluated by myself in the express care. History is obtained from patient who is an independent historian and physical exam was performed. Available medical records were reviewed at this time. Exam findings show no acute concerns or changes; patient is non-toxic appearing and is in no distress. Patient is appropriate for outpatient treatment and follow-up. I have evaluated and discussed social determinants of health with the patient that could potentially impact subsequent diagnosis and treatment plans. Differential diagnosis and treatment plan were discussed with the patient. Patient agrees with discussion and after shared medical decision making agrees with plan of care. All questions were answered to the patient's satisfaction. Differential Diagnosis Differential Diagnosis: Migraine, headache, viral illness, COVID, influenza, sinusitis, urinary tract infection, cystitis Medical Records I have reviewed the following patient records and this information was taken into consideration when formulating the assessment and plan.: previous labs, previous ER visits, previous hospitalizations and previous clinic visits Lab Data MDM Lab Attestation statement: I personally reviewed the patient's lab results. Discharge Plan Discharge Clinical Impression: Cystitis Patient Disposition: Home Condition: Stable Instructions: Antibiotic Form, Urinary Tract Infection in Women (ED) Additional Instructions: We will send a urine culture off to the lab; if the culture identifies an organism that the prescribed antibiotic will not treat, you will receive a phone call from an urgent care staff member and an appropriate antibiotic will be prescribed. -Your symptoms should begin to improve within a day of starting antibiotics. But you should finish all the antibiotic pills you get. Otherwise your infection might come back. -Also recommend: drink more fluid. It might help flush out germs, and it does no harm -Tylenol/ibuprofen as needed for pain -Follow-up with your primary care provider for urine recheck OR if your symptoms persist, change or worsen significantly before you can contact your personal physician then please, without delay, go to the emergency department for further evaluation. Patient Language: Ug[place] Prescriptions: New cephalexin 500 mg capsule 500 mg PO Q12H Qty: 10 0RF No Action metformin 500 mg tablet 500 mg PO BID multivitamin Tablet 1 tablet PO DAILY cholecalciferol (vitamin D3) 125 mcg (5,000 unit) capsule 125 mcg PO DAILY Fish Oil 120-180 mg capsule 1 cap PO DAILY PreserVision AREDS 2,148 mcg-113 mg-45 mg-17.4mg tablet 1 tablet PO ONCE Rx Instructions: administer with AM and PM meals atorvastatin 20 mg tablet 20 mg PO DAILY sertraline 100 mg tablet 100 mg PO DAILY lorazepam 1 mg tablet 1 mg PO PRN PRN (Reason: Anxiety) omeprazole 40 mg capsule,delayed release(DR/EC) 40 mg PO DAILY Qty: 30 2RF Follow-up/Referrals: Maegan Shea RN [Primary Care Provider, Nursing] Time of Disposition: 15:10
[2025-08-23 14:53] LABS: EDCOVIDSCREEN Negative (Negative); EDINFLUASCREEN Negative (Negative); EDINFLUBSCREEN Negative (Negative)
[2025-08-23 15:10] LABS: EDUAAPPEAR Clear; EDUABILI Negative (Negative); EDUABLOOD Negative (Negative); EDUACOLOR1 Yellow; EDUAGLUCOSE Negative (Negative); EDUAKETONE Negative (Negative); EDUALEUKO 2+ (Negative); EDUANITRATE Negative (Negative); EDUAPH 6.0; EDUAPROTEIN Negative (Negative); EDUASPGRAVITY 1.015; EDUAUROBILI 0.2
== END 2025-08-23 15:13 | disposition home or self-care (01) ==
PROVIDERS: Emergency Provider Nurse Practitioner Family
DX: N30.90 Cystitis, unspecified without hematuria (principal); Z20.822 Contact with and (suspected) exposure to COVID-19; E11.9 Type 2 diabetes mellitus without complications; Z79.84 Long term (current) use of oral hypoglycemic drugs; E78.00 Pure hypercholesterolemia, unspecified; M19.90 Unspecified osteoarthritis, unspecified site; E55.9 Vitamin D deficiency, unspecified; Z96.643 Presence of artificial hip joint, bilateral
CPT/HCPCS: 81003; 87086; 87426; 87804; 99213; G0463